=== PATIENT | male | born 1960 | race African-American/Black ===

== ENCOUNTER 2016-12-29 17:16 | Inpatient (IN) | payer MEDICAID ==
[2016-12-29] MEDS ORDERED: HYDROCODONE/ACETAMINOPHEN 5-325 MG TABLET PO ONE (18:00)
--- NOTE | 2016-12-29 18:06 | ER Document Report ---
ED Medical Screen (RME) - General Stated Complaint: FLANK PAIN,ABNORMAL RESULTS Mode of Arrival: Ambulatory Information source: Patient Notes: 56 y/o M presents to ED referred by pcp c/o ruq abd/lower chest pain over the last week. Reports associated decreased appetite and states pain is worse with deep breathing and movement. I have greeted and performed a rapid initial assessment of this patient. A comprehensive ED assessment and evaluation of the patient, analysis of test results and completion of the medical decision making process will be conducted by additional ED providers. TRAVEL OUTSIDE OF THE [place] IN LAST 30 DAYS: No - Related Data Allergies/Adverse Reactions: No Known Allergies Allergy (Unverified 12/29/16 17:58) Physical Exam - Vital signs Vitals: Temp Pulse Resp BP Pulse Ox 99.1 F 105 H 24 H 136/77 H 92 12/29/16 18:01 12/29/16 18:01 12/29/16 18:01 12/29/16 18:01 12/29/16 18:01 - General General appearance: Alert In distress: None - Respiratory Respiratory status: No respiratory distress Breath sounds: Rhonchi - R>L. No: Wheezing - Cardiovascular Pulses: Normal: Radial Normal capillary refill: Yes Course - Vital Signs Vital signs: Temp Pulse Resp BP Pulse Ox 99.1 F 105 H 24 H 136/77 H 92 12/29/16 18:01 12/29/16 18:01 12/29/16 18:01 12/29/16 18:01 12/29/16 18:01
[2016-12-29 18:35] LABS: HEMATOCRIT 39.3 % (37.9-51.0); HEMOGLOBIN 13.3 g/dL (13.5-17.0); HGB HCT DIFFERENCE 0.6; MEAN CORPUSCULAR HEMOGLOBIN 29.5 pg (27.0-33.4); MEAN CORPUSCULAR HGB CONC 33.9 g/dL (32.0-36.0); MEAN CORPUSCULAR VOLUME 87 fl (80-97); RED BLOOD COUNT 4.53 10^6/uL (4.35-5.55); RED CELL DISTRIBUTION WIDTH 13.5 % (11.5-14.0); WHITE BLOOD COUNT 26.4 10^3/uL (4.0-10.5)
[2016-12-29 18:48] LABS: ALANINE AMINOTRANSFERASE 75 U/L (21-72); ALBUMIN 3.6 g/dL (3.5-5.0); ALKALINE PHOSPHATASE 103 U/L (38-126); ANION GAP 16 (5-19); APPEARANCE,URINE SLIGHTLY-CLOUDY; ASPARTATE AMINO TRANSFERASE 61 U/L (17-59); BILIRUBIN,TOTAL 0.9 mg/dL (0.2-1.3); BILIRUBIN,URINE SMALL (NEGATIVE); BLOOD UREA NITROGEN 13 mg/dL (7-20); CARBON DIOXIDE 27 mmol/L (22-30); CHLORIDE 96 mmol/L (98-107); CREATININE RESULT 0.82 mg/dL (0.52-1.25); GLUCOSE 125 mg/dL (75-110); GLUCOSE, URINE NEGATIVE (NEGATIVE); KETONES,URINE TRACE mg/dL (NEGATIVE); LEUKOCYTE ESTERASE,URINE SMALL (NEGATIVE); LIPASE 621.5 U/L (23-300); NITRITE,URINE NEGATIVE (NEGATIVE); POTASSIUM 3.5 mmol/L (3.6-5.0); PROTEIN,URINE 100 mg/dL (NEGATIVE); SODIUM 139.3 mmol/L (137-145); URINE SPECIFIC GRAVITY 1.027
[2016-12-29 18:58] LABS: BASOPHILS % (MANUAL) 0 % (0-2); EOSINOPHILS % (MANUAL) 0 % (0-6); LYMPHOCYTES % (MANUAL) 10 % (13-45); TOTAL CELLS COUNTED 100
[2016-12-29 19:01] LABS: PLATELET CLUMPS PRESENT; POLYCHROMASIA SLIGHT; TOXIC GRANULATION 1+; TOXIC VACUOLATION PRESENT
[2016-12-29] MEDS ORDERED: CEFTRIAXONE 1 GM/D5W RTU 50 ML IV ONE (19:55)
[2016-12-29] MEDS ORDERED: NORMAL SALINE 1000 ML 1,000 ML IV ONE (19:56)
[2016-12-29] MEDS ORDERED: LEVOFLOXACIN 750 MG/D5W RTU 150 ML IV ONE (19:56)
[2016-12-29 20:33] LABS: VENOUS BLOOD PCO2 39.5 mmHg (35-63); VENOUS BLOOD PH 7.45 (7.30-7.42)
[2016-12-29] MEDS ORDERED: LACTULOSE SYRUP 20 GM/30 ML UDCUP PO ONE (20:40)
--- NOTE | 2016-12-29 20:42 | ER Document Report ---
ED General - General Chief Complaint: Flank Pain Stated Complaint: FLANK PAIN,ABNORMAL RESULTS Mode of Arrival: Ambulatory Notes: Patient is a 56-year-old male with a past medical history of hypertension and symptomatic cholelithiasis who presents with 24 hours of progressively worsening cough, sputum production, and right lower rib pain. Does describe the pain as a dull aching pain. Does were gradual in onset and have been getting progressively worse. Nothing improves or worsens the pain. He was seen by his primary care physician today who referred him to the emergency department after being concerned about the degree of his white blood cell count elevation. Patient notes some mild shortness of breath which is worsened by exertion. He has not had a fever at home. No vomiting or diarrhea. No known sick contacts. No history of similar symptoms in the past. He denies any history of chronic lung disease. He denies any chest pain. TRAVEL OUTSIDE OF THE [place] IN LAST 30 DAYS: No - Related Data Allergies/Adverse Reactions: No Known Allergies Allergy (Unverified 12/29/16 17:58) Home Medications: Current Home Medications Methocarbamol [Robaxin 750 mg Tablet] 750 mg PO Q6HP PRN 12/29/16 [History] Naproxen [Naprosyn 250 mg Tablet] 500 mg PO Q12HP PRN 12/29/16 [History] Past Medical History - General Information source: Patient - Social History Smoking Status: Current Every Day Smoker Chew tobacco use (# tins/day): No Drug Abuse: None Lives with: Spouse/Significant other Family History: Reviewed & Not Pertinent Patient has suicidal ideation: No Patient has homicidal ideation: No - Past Medical History Cardiac Medical History: Reports: Hx Hypercholesterolemia Renal/ Medical History: Denies: Hx Peritoneal Dialysis Review of Systems - Review of Systems Notes: Constitutional: Negative for fever. HENT: Negative for sore throat. Eyes: Negative for visual changes. Cardiovascular: Negative for chest pain. Respiratory: Positive for shortness of breath. Gastrointestinal: Positive for abdominal pain, negative for vomiting or diarrhea. Genitourinary: Negative for dysuria. Musculoskeletal: Negative for back pain. Skin: Negative for rash. Neurological: Negative for headaches, weakness or numbness. 10 point ROS negative except as marked above and in HPI. Physical Exam - Vital signs Vitals: Temp Pulse Resp BP Pulse Ox 99.1 F 105 H 24 H 136/77 H 92 12/29/16 18:01 12/29/16 18:01 12/29/16 18:01 12/29/16 18:01 12/29/16 18:01 Interpretation: Tachycardic, Hypoxic, Tachypneic Notes: PHYSICAL EXAMINATION: GENERAL: Mildly ill in appearance but in no acute distress HEAD: Atraumatic, normocephalic. EYES: Pupils equal round and reactive to light, extraocular movements intact, sclera anicteric, conjunctiva are normal. ENT: nares patent, oropharynx clear without exudates. Moist mucous membranes. NECK: Normal range of motion, supple without lymphadenopathy LUNGS: Slightly diminished at the right low base. Mild tachypnea with respiratory rate of 24. No distress. HEART: Regular tachycardia without murmurs ABDOMEN: Soft, mild tenderness the right upper quadrant on palpation. Bedside ultrasound shows gallstones without gallbladder wall thickening, pericholecystic fluid. Normoactive bowel sounds. No guarding, no rebound. No masses appreciated. EXTREMITIES: Normal range of motion, no pitting or edema. No cyanosis. NEUROLOGICAL: No focal neurological deficits. Moves all extremities spontaneously and on command. PSYCH: Normal mood, normal affect. SKIN: Warm, Dry, normal turgor, no rashes or lesions noted. Course - Re-evaluation Re-evalutation: 12/29/16 20:37 Patient presents with right upper quadrant abdominal pain as well as right lower rib pain. This been getting progressively worse over last 2 weeks. His chest x-ray shows a large right lower lobe pneumonia as well as a possible right middle lobe infiltrate. Patient was mildly tachypneic and borderline hypoxemic at time of arrival with oxygen sat of 92% on room air. He is mildly tachycardic. Overall nontoxic in appearance. Patient also has complaint of some right upper quadrant abdominal pain and has been diagnosed as having symptomatic cholelithiasis. He states this pain is unchanged today. A bedside ultrasound does not demonstrate any wall thickening or pericholecystic fluid, gallstones are again visualized. Borderline hypoxemia, tachycardia, mild tachypnea, leukocytosis, will proceed with admission to the hospital for IV antibiotics. Patient and his are in agreement with this plan. - Vital Signs Vital signs: Temp Pulse Resp BP Pulse Ox 98.5 F 95 16 144/74 H 95 12/29/16 22:42 12/30/16 02:15 02/02/17 22:42 12/29/16 22:42 12/29/16 22:42 - Laboratory Result Diagrams: 12/29/16 18:10 12/29/16 18:10 Laboratory results interpreted by me: 12/29/16 12/29/16 12/29/16 18:10 18:10 18:10 WBC 26.4 H Hgb 13.3 L Seg Neuts % (Manual) 84 H Lymphocytes % (Manual) 10 L Monocytes % (Manual) 1 L Abs Neuts (Manual) 22.2 H VBG pH Potassium 3.5 L Chloride 96 L Glucose 125 H AST 61 H ALT 75 H Lipase 621.5 H Urine Protein 100 H Urine Ketones TRACE H Urine Blood SMALL H Urine Bilirubin SMALL H Urine Urobilinogen 4.0 H Ur Leukocyte Esterase SMALL H 12/29/16 20:21 WBC Hgb Seg Neuts % (Manual) Lymphocytes % (Manual) Monocytes % (Manual) Abs Neuts (Manual) VBG pH 7.45 H Potassium Chloride Glucose AST ALT Lipase Urine Protein Urine Ketones Urine Blood Urine Bilirubin Urine Urobilinogen Ur Leukocyte Esterase - Diagnostic Test Radiology reviewed: Image reviewed, Reports reviewed Radiology results interpreted by me: 12/29/16 20:41 Chest x-ray: Right lower lobe pneumonia possible right middle lobe infiltrate Discharge - Discharge Clinical Impression: Sepsis Qualifiers: Sepsis type: sepsis due to unspecified organism Qualified Code(s): A41.9 - Sepsis, unspecified organism Right lower lobe pneumonia Qualifiers: Pneumonia type: due to unspecified organism Qualified Code(s): J18.1 - Lobar pneumonia, unspecified organism Condition: Fair Disposition: ADMITTED OBSERVATION Admitting Provider: Hospitalist [facility] Unit Admitted: Telemetry
[2016-12-29] MEDS ORDERED: NORMAL SALINE 1000 ML 1,000 ML IV SCH (20:45)
[2016-12-29] MEDS ORDERED: IPRATROPIUM/ALBUTEROL 0.5-2.5 MG/3 ML AMPUL NEB ONE (21:00)
[2016-12-29] MEDS: FLUTICASONE NASAL SPRAY 50 MCG/SPRY 120 SPRAY/16 GM NASL SCH (22:47)
[2016-12-29] MEDS ORDERED: INFLUENZA ADLT QUAD (36MOS+) 2016-17 VAC 0.5 ML SYR IM PRN (22:53)
[2016-12-29] MEDS: HEPARIN SOD (PORCINE) 5,000 UNIT/ML 1 ML SYRINGE SUBCUT SCH (23:20)
[2016-12-29 23:42] LABS: PROTHROMBIN TIME 14.9 SEC (11.4-15.4)
[2016-12-30] MEDS: IPRATROPIUM/ALBUTEROL 0.5-2.5 MG/3 ML AMPUL NEB SCH ×4 (02:03→21:49)
[2016-12-30] MEDS: ACETAMINOPHEN 325 MG TABLET PO PRN ×3 (04:01→17:13)
[2016-12-30] MEDS: GUAIFENESIN SYRP 200 MG/10 ML UDC PO PRN ×4 (04:02→17:13)
[2016-12-30] MEDS ORDERED: VANCOMYCIN HCL 1,000 MG in DEXTROSE 5%-WATER 250 ML IV ONE (04:25)
[2016-12-30] MEDS ORDERED: VANCOMYCIN HCL 0 MG in DEXTROSE 5%-WATER 250 ML IV NR (04:30)
--- NOTE | 2016-12-30 04:36 | PDOC H&P ---
History of Present Illness Admission Date/PCP: 12/29/16 20:41 Patient complains of: Shortness of breath and right-sided abdominal pain History of Present Illness: GARFIELD KING is a 56 year old male with a past medical history of tobacco Dependence, who had been in his usual state of health until approximately 2 weeks ago noting shortness of breath with deep breathing associated with right upper quadrant pain prompting to seek evaluation with his primary care Dr. Moya. Patient states there was concern for cholecystitis and referred to the ER for workup where his found to have an oxygen saturation of only 92% on room air dropping to 87% with ambulation and tachypnea. Denying subjective fever and chills nausea vomiting diaphoresis or palpitations. Imaging reveals a loculated pleural effusion on the right side and is referred to the hospitalist for admission. Past Medical History Cardiac Medical History: Reports: Hyperlipidema Psychiatric Medical History: Reports: Tobacco Dependency Social History Information Source: Patient, Relative Lives with: Spouse/Significant other Smoking Status: Current Every Day Smoker Cigarettes Packs Per Day: 1 Drugs: None Hx Prescription Drug Abuse: No - Advance Directive Resuscitation Status: Full Code Family History Family History: COPD, Hypertension Parental Family History Reviewed: Yes Children Family History Reviewed: Yes Sibling(s) Family History Reviewed.: Yes Medication/Allergy Home Medications: Methocarbamol [Robaxin 750 mg Tablet] 750 mg PO Q6HP PRN 12/29/16 Naproxen [Naprosyn 250 mg Tablet] 500 mg PO Q12HP PRN 12/29/16 Allergies/Adverse Reactions: No Known Allergies Allergy (Unverified 12/29/16 17:58) Review of Systems Constitutional: PRESENT: anorexia, chills, fatigue. ABSENT: fever(s), headache( s), weight gain, weight loss Eyes: ABSENT: visual disturbances Ears: ABSENT: hearing changes Cardiovascular: ABSENT: chest pain, dyspnea on exertion, edema, orthropnea, palpitations Respiratory: PRESENT: cough, dyspnea. ABSENT: hemoptysis, sputum Gastrointestinal: PRESENT: bloating, constipation, nausea. ABSENT: abdominal pain, diarrhea, hematemesis, hematochezia, vomiting Genitourinary: ABSENT: dysuria, hematuria Musculoskeletal: ABSENT: joint swelling Integumentary: ABSENT: rash, wounds Neurological: ABSENT: abnormal gait, abnormal speech, confusion, dizziness, focal weakness, syncope Psychiatric: ABSENT: anxiety, depression, homidical ideation, suicidal ideation Endocrine: ABSENT: cold intolerance, heat intolerance, polydipsia, polyuria Hematologic/Lymphatic: ABSENT: easy bleeding, easy bruising Physical Exam Vital Signs: Temp Pulse Resp BP Pulse Ox 98.5 F 95 16 144/74 H 95 12/29/16 22:42 12/30/16 02:15 12/29/16 22:42 12/29/16 22:42 12/29/16 22:42 Intake & Output 12/28/16 12/29/16 12/30/16 11:59 11:59 11:59 Weight 93 kg General appearance: PRESENT: cooperative, mild distress, thin. ABSENT: disheveled, hard of hearing Head exam: PRESENT: atraumatic, normocephalic Eye exam: PRESENT: conjunctiva pink, EOMI, PERRLA. ABSENT: scleral icterus Ear exam: PRESENT: normal external ear exam Mouth exam: PRESENT: moist, tongue midline Neck exam: ABSENT: carotid bruit, JVD, lymphadenopathy, thyromegaly Respiratory exam: PRESENT: accessory muscle use, decreased breath sounds, prolonged expiratory phas, rhonchi, symmetrical, tachypnea Cardiovascular exam: PRESENT: +S1, +S2. ABSENT: clicks, diastolic murmur Pulses: PRESENT: normal dorsalis pedis pul Vascular exam: PRESENT: normal capillary refill GI/Abdominal exam: PRESENT: distended, hypoactive bowel sounds, tenderness. ABSENT: firm, guarding Rectal exam: PRESENT: deferred Extremities exam: PRESENT: full ROM. ABSENT: calf tenderness, clubbing, pedal edema Neurological exam: PRESENT: alert, awake, oriented to person, oriented to place , oriented to time, oriented to situation, CN II-XII grossly intact. ABSENT: motor sensory deficit Psychiatric exam: PRESENT: appropriate affect, normal mood. ABSENT: homicidal ideation, suicidal ideation Skin exam: PRESENT: dry, intact, warm. ABSENT: cyanosis, rash Results Impressions: Chest X-Ray 12/29/16 18:06 IMPRESSION: Right-sided infiltrate consistent with pneumonia. Abdomen/Pelvis CT 12/30/16 00:00 IMPRESSION: Calcified gallstones are identified. There is some enlargement of the prostate gland with a prostatic impression on the bladder base. Other findings as noted above Assessment & Plan - Diagnosis (1) Sepsis Qualifiers: Sepsis type: sepsis due to unspecified organism Qualified Code(s): A41.9 - Sepsis, unspecified organism Is this a current diagnosis for this admission?: YesPlan: Tachycardia and leukocytosis of 26,000 secondary to pneumonia with loculated pleural effusion he'll have an IV fluid challenge and correction of the underlying cause please see #2 (2) Right lower lobe pneumonia Qualifiers: Pneumonia type: due to unspecified organism Qualified Code(s): J18.1 - Lobar pneumonia, unspecified organism Is this a current diagnosis for this admission?: YesPlan: Collocated by by loculated pleural effusion and COPD with ongoing tobacco dependence he'll be admitted to a monitored bed with IV antibiotics of Levaquin and vancomycin, albuterol and Atrovent nebulizer, incentive spirometry, blood culture, follow-up labs and pulmonology consultation (3) COPD exacerbation Is this a current diagnosis for this admission?: YesPlan: Please see #1 (4) Constipation Is this a current diagnosis for this admission?: YesPlan: Lactulose followed by Colace consider enema - Time Time Spent: 50 to 70 Minutes
[2016-12-30] MEDS ORDERED: VANCOMYCIN HCL INJ 1000 MG VIAL ONE (04:58)
[2016-12-30] MEDS: HEPARIN SOD (PORCINE) 5,000 UNIT/ML 1 ML SYRINGE SUBCUT SCH ×2 (05:18→17:15)
[2016-12-30 06:25] LABS: HEMATOCRIT 34.2 % (37.9-51.0); HEMOGLOBIN 11.7 g/dL (13.5-17.0); HGB HCT DIFFERENCE 0.9; MEAN CORPUSCULAR HEMOGLOBIN 29.6 pg (27.0-33.4); MEAN CORPUSCULAR VOLUME 87 fl (80-97); RED BLOOD COUNT 3.94 10^6/uL (4.35-5.55); RED CELL DISTRIBUTION WIDTH 13.8 % (11.5-14.0); WHITE BLOOD COUNT 23.7 10^3/uL (4.0-10.5)
[2016-12-30 06:35] LABS: ANION GAP 13 (5-19); BLOOD UREA NITROGEN 10 mg/dL (7-20); CALCIUM 8.1 mg/dL (8.4-10.2); CARBON DIOXIDE 25 mmol/L (22-30); CHLORIDE 101 mmol/L (98-107); CREATININE RESULT 0.66 mg/dL (0.52-1.25); GLUCOSE 141 mg/dL (75-110); POTASSIUM 3.6 mmol/L (3.6-5.0); SODIUM 138.6 mmol/L (137-145)
[2016-12-30 06:59] LABS: BAND NEUTROPHILS % (MANUAL) 6 % (3-5); BASOPHILS % (MANUAL) 0 % (0-2); EOSINOPHILS % (MANUAL) 0 % (0-6); LYMPHOCYTES % (MANUAL) 9 % (13-45); TOTAL CELLS COUNTED 100
[2016-12-30 07:01] LABS: ANISOCYTOSIS SLIGHT; POLYCHROMASIA SLIGHT; TOXIC GRANULATION SLIGHT; TOXIC VACUOLATION PRESENT
[2016-12-30] MEDS: FLUTICASONE NASAL SPRAY 50 MCG/SPRY 120 SPRAY/16 GM NASL SCH (09:38)
[2016-12-30] MEDS ORDERED: LEVOFLOXACIN 750 MG/D5W RTU 150 ML IV SCH (10:00)
[2016-12-30 13:53] LABS: PROTHROMBIN TIME 15.4 SEC (11.4-15.4)
[2016-12-30 13:54] LABS: PARTIAL THROMBOPLASTIN TIME 33.8 SEC (23.5-35.8)
--- NOTE | 2016-12-30 17:13 | PDOC TRANSFER SUMMARY ---
General Admission Date/PCP: 12/29/16 20:41 Transfer Date: 12/30/16 Accepting Facility: [facility] Accepting Physician: Dr. Carvajal Resuscitation Status: Full Code - Transfer Diagnosis (1) Right lower lobe pneumonia Is this a current diagnosis for this admission?: YesDiagnosis Summary: Patient presented with right upper quadrant pain and was found to have a right lower lobe pneumonia as well as a pleural effusion that is loculated. This is worrisome for possible empyema. The patient initially was given Levaquin and vancomycin. The vancomycin has been stopped as the patient does not have risk factors for MRSA exposure. (2) Pleural effusion Is this a current diagnosis for this admission?: YesDiagnosis Summary: Most likely secondary to the lower lobe pneumonia. The patient has what appears to be loculated effusion. Patient was seen by the local personal injury law specialist after I discussed the case with Francisco Merrill and a thoracentesis was ordered. 30 mL was removed and no further was able to be removed because of the loculation. I discussed the case with cardiothoracic surgery and Francisco Merrill who agrees the patient needs a intervention with probable VATS procedure. (3) Hyperlipidemia Is this a current diagnosis for this admission?: Yes - Transfer Medications Home Medications: Methocarbamol [Robaxin 750 mg Tablet] 750 mg PO Q6HP PRN 12/29/16 Naproxen [Naprosyn 250 mg Tablet] 500 mg PO Q12HP PRN 12/29/16 Transfer Medications: Current Medications Acetaminophen (Tylenol 325 Mg Tablet) 650 mg PO Q4HP PRN PRN Reason: pain or temp greater than 101F Stop: 01/28/17 20:39 Last Admin: 12/30/16 09:00 Dose: 650 mg Albuterol/Ipratropium (Duoneb 3 Ml Ampul) 3 ml NEB RTQ6 JARON Stop: 01/29/17 01:59 Last Admin: 12/30/16 14:09 Dose: Not Given Fluticasone Propionate (Flonase Nasal [place] 50 Mcg/[place] 16 Gm) 2 spray NASL Q12 JARON Stop: 01/28/17 21:59 Last Admin: 12/30/16 09:38 Dose: 2 spray Guaifenesin (Robitussin Syrup 200 Mg/10 Ml Ud Cup) 200 mg PO Q4HP PRN Stop: 01/29/17 03:43 Last Admin: 12/30/16 12:50 Dose: 200 mg Heparin Sodium (Porcine) (Heparin Inj 5,000 Units/Ml 1 Ml Syringe) 5,000 unit SUBCUT Q8 [facility] Stop: 01/28/17 21:59 Last Admin: 12/30/16 05:18 Dose: 5,000 unit Levofloxacin/Dextrose (Levaquin Rtu 750 Mg/D5w 150 Ml Premix) 150 mls @ 100 mls /hr IV DAILY JARON Stop: 01/06/17 09:59 Last Admin: 12/30/16 09:38 Dose: 150 ml Sodium Chloride (Nacl 0.9% 1000 Ml Iv Soln) 1,000 mls @ 200 mls/hr IV X 2 BAGS [facility] Stop: 01/28/17 20:44 Influenza Virus Vaccine Quadrival (Fluzone Adlt Quad [id number] Vac 0.5 Ml Syr) 0.5 ml IM .AT DISCHARGE PRN PRN Reason: THIS MED IS NOT "PRN" Stop: 01/28/17 22:52 Sodium Chloride (Saline Flush 2.5 Ml Monoject Prefil Syrin) 2.5 ml IV Q8 JARON Stop: 01/28/17 21:59 Last Admin: 12/30/16 05:18 Dose: 2.5 ml - Allergies Allergies/Adverse Reactions: No Known Allergies Allergy (Unverified 12/29/16 17:58) - Diet/Activity Discharge Diet: Cardiac Hospital Course Hospital Course: 56-year-old gentleman who was admitted with right upper quadrant abdominal pain. The patient when he presented had right upper quadrant pain and there is concerned because he had calcified gallstones present on plain films. The patient underwent a CT and was found to have no evidence for cholecystitis but did have a loculated pleural effusion on the right along with right lower lobe pneumonia. Chest x-ray confirms right-sided pneumonia with effusion. The patient, because of the loculated effusion, needed to go to a tertiary center. I discussed this with the hospitalist service at [facility] who graciously agreed to accept the patient. Patient was also seen by our local personal injury law specialist who ordered a thoracentesis and 30 mL were removed by the radiologist. No further fluid was able to be removed because of the loculation. Because of this the patient will require a chest tube if not a VATS procedure. The patient was initially put on vancomycin and Levaquin. The patient does not have risk factors for MRSA and the vancomycin was stopped and is continued on just the Levaquin. Physical Exam Vital Signs: Temp Pulse Resp BP Pulse Ox 97.6 F 104 H 16 157/80 H 97 12/30/16 15:36 12/30/16 15:36 12/30/16 15:36 12/30/16 15:36 12/30/16 15:36 Intake & Output 12/29/16 12/30/16 12/31/16 06:59 06:59 06:59 Intake Total 2100 Balance 2100 Weight 93 kg General appearance: PRESENT: no acute distress Eye exam: PRESENT: conjunctiva pink. ABSENT: scleral icterus Ear exam: PRESENT: normal external ear exam Mouth exam: PRESENT: moist, tongue midline Neck exam: ABSENT: carotid bruit, JVD, lymphadenopathy, thyromegaly Respiratory exam: PRESENT: decreased breath sounds - Decreased breath sounds on the right., rhonchi - Coarse rhonchi and upper right lung lawrence Cardiovascular exam: PRESENT: RRR. ABSENT: diastolic murmur, rubs, systolic murmur Vascular exam: PRESENT: normal capillary refill GI/Abdominal exam: PRESENT: normal bowel sounds, soft. ABSENT: distended, guarding, mass, organolmegaly, rebound, tenderness Rectal exam: PRESENT: deferred Extremities exam: PRESENT: full ROM. ABSENT: calf tenderness, clubbing, pedal edema Neurological exam: PRESENT: alert, awake, oriented to person, oriented to place , oriented to time, oriented to situation, CN II-XII grossly intact. ABSENT: motor sensory deficit Psychiatric exam: PRESENT: appropriate affect Skin exam: PRESENT: dry, intact, warm. ABSENT: cyanosis, rash Results Laboratory Results: 12/30/16 06:01 12/30/16 06:04 12/30/16 12/30/16 06:01 06:04 WBC 23.7 H RBC 3.94 L Hgb 11.7 L Hct 34.2 L MCV 87 MCH 29.6 MCHC 34.0 RDW 13.8 Plt Count 300 Seg Neutrophils % Not Reportable Lymphocytes % Not Reportable Monocytes % Not Reportable Eosinophils % Not Reportable Basophils % Not Reportable Absolute Neutrophils Not Reportable Absolute Lymphocytes Not Reportable Absolute Monocytes Not Reportable Absolute Eosinophils Not Reportable Absolute Basophils Not Reportable Sodium 138.6 Potassium 3.6 Chloride 101 Carbon Dioxide 25 Anion Gap 13 BUN 10 Creatinine 0.66 Est GFR ( Amer) > 60 Est GFR (Non-Af Amer) > 60 Glucose 141 H Calcium 8.1 L Impressions: Abdomen/Pelvis CT 12/30/16 00:00 IMPRESSION: Calcified gallstones are identified. There is some enlargement of the prostate gland with a prostatic impression on the bladder base. Other findings as noted above Chest X-Ray 12/30/16 00:00 IMPRESSION: STABLE APPEARANCE OF THE CHEST. Thoracentesis Ultrasound 12/30/16 12:55 IMPRESSION: SUCCESSFUL THORACENTESIS USING ULTRASOUND GUIDANCE. Plan Discharge Plan: Patient is to be transferred to [facility] Dr. Carvajal is the accepting physician. Case was also discussed with Dr. Sosa of thoracic surgery about the possibility of requiring a VATS procedure. He stated that he would have the hospitalist admit the patient and would plan on doing a VATS procedure on Monday. Time Spent: Greater than 30 Minutes
[2016-12-30 20:42] VITALS: BP 137/72
== END 2016-12-30 20:08 | disposition short-term general hospital (02) | DRG 194 ==
LOC: ER 17:16 → EH 20:41 → UNDOADMIN 20:53 → 4S 22:29
PROVIDERS: ADMIT Internal Medicine; ATTEND Internal Medicine
PROC: 0W993ZX Drainage of Right Pleural Cavity, Percutaneous Approach, Diagnostic (ICD-10-PCS; principal; 2016-12-30)
DX: J18.9 Pneumonia, unspecified organism (principal); J90 Pleural effusion, not elsewhere classified; E78.5 Hyperlipidemia, unspecified; F17.210 Nicotine dependence, cigarettes, uncomplicated; Z82.5 Family history of asthma and other chronic lower respiratory diseases; Z82.49 Family history of ischemic heart disease and other diseases of the circulatory system
CPT/HCPCS: 32555; 36415; 71010; 71020; 74177; 80048; 80053; 81001; 82150; 82803; 83605; 83615; 83690; 84157; 85025; 85610; 85730; 87015; 87040; 87070; 87075; 87101; 87116; 87205; 87206; 87252; 94640; 96365; 96368; 99285; J0696; J1644; J1956; J3370; J3490; J7030; J7620

== ENCOUNTER → 2017-01-12 | Outpatient (CLI) | payer MEDICAID | LOC: OD 11:21 | PROVIDERS: ATTEND Family Medicine | DX: J69.0 Pneumonitis due to inhalation of food and vomit (principal) | CPT/HCPCS: 71020 ==

== ENCOUNTER → 2017-02-21 | Outpatient (CLI) | payer MEDICAID | LOC: RAD 09:06 | PROVIDERS: ATTEND Urology | DX: R31.0 Gross hematuria (principal); N40.0 Benign prostatic hyperplasia without lower urinary tract symptoms; K80.80 Other cholelithiasis without obstruction | CPT/HCPCS: 74178; 82565 ==

== ENCOUNTER 2018-02-22 09:31 | Inpatient (IN) | payer MEDICAID, MEDICARE ==
[2018-02-22] MEDS ORDERED: NALOXONE HCL INJ/PF 0.4 MG/1 ML SDV IV ONE (09:48)
--- NOTE | 2018-02-22 09:52 | ER Document Report ---
ED Medical Screen (RME) - General Chief Complaint: Feet Swelling Stated Complaint: FEET SWELLING, COUGH Time Seen by Provider: 02/22/18 09:40 Notes: Patient sent over from primary care doctor's office for low temperature of 95.6 orally, altered mental status. Patient reportedly had recent pneumonia with large amount of pleural effusions, complications with a prostate surgery. states that he has had increased confusion and not feeling normal for the last several days. I have greeted and performed a rapid initial assessment of this patient. A comprehensive ED assessment and evaluation of the patient, analysis of test results and completion of the medical decision making process will be conducted by additional ED providers. TRAVEL OUTSIDE OF THE [place] IN LAST 30 DAYS: No - Related Data Allergies/Adverse Reactions: No Known Allergies Allergy (Verified 02/22/18 09:32) Past Medical History - Past Medical History Cardiac Medical History: Reports: Hx Hypercholesterolemia Renal/ Medical History: Denies: Hx Peritoneal Dialysis Physical Exam - Vital signs Vitals: Temp Pulse Resp BP Pulse Ox 96.4 F L 115 H 22 H 108/55 L 96 02/22/18 09:33 02/22/18 09:33 02/22/18 09:33 02/22/18 09:33 02/22/18 09:33 - Notes Notes: General: Sleepy, arousable HEENT: Atraumatic, normocephalic, pupils are 1-1/2 mm bilaterally/borderline pinpoint.. Pupils equal round react to light and accommodation, extraocular muscles are intact, nose is non tender, posterior pharynx is without erythema or exudate. Tongue is unremarkable Heart: Heart with regular rate and rhythm, no murmurs, no rubs, no clicks, edema bilateral lower extremities Lungs: Crackles at the bases bilaterally left greater than the right Abdomen: Abdomen is soft, nontender, nondistended, normal bowel sounds Neuro: cranial nerves II through XII intact, reflexes intact, sensation intact, Extremities:Moving all extremities. Equal strength bilaterally in the upper lower extremities. No significant deformity. Edema noted bilateral lower extremities Skin: No lesions. Skin intact Psych: Normal insight. Normal judgment Course - Vital Signs Vital signs: Temp Pulse Resp BP Pulse Ox 96.4 F L 115 H 22 H 108/55 L 96 02/22/18 09:33 02/22/18 09:33 02/22/18 09:33 02/22/18 09:33 02/22/18 09:33
[2018-02-22] MEDS ORDERED: NALOXONE HCL INJ 2 MG/2 ML DISP.SYRIN IV ONE (10:10)
[2018-02-22] MEDS ORDERED: NALOXONE HCL INJ 2 MG/2 ML DISP.SYRIN ONE (10:13)
[2018-02-22 10:15] LABS: HEMATOCRIT 42.6 % (37.9-51.0); HEMOGLOBIN 14.5 g/dL (13.5-17.0); MEAN CORPUSCULAR HEMOGLOBIN 27.9 pg (27.0-33.4); RED CELL DISTRIBUTION WIDTH 15.3 % (11.5-14.0)
[2018-02-22 10:21] LABS: MEAN CORPUSCULAR VOLUME 82 fl (80-97)
[2018-02-22 10:22] LABS: PLATELET COUNT 11 10^3/uL (150-450)
[2018-02-22] MEDS ORDERED: CEFTRIAXONE INJ 1000 MG VIAL IV ONE (10:28)
[2018-02-22 10:30] LABS: ALANINE AMINOTRANSFERASE 66 U/L (21-72); ALBUMIN 2.9 g/dL (3.5-5.0); ALKALINE PHOSPHATASE 195 U/L (38-126); ANION GAP 15 (5-19); ASPARTATE AMINO TRANSFERASE 76 U/L (17-59); BILIRUBIN,DIRECT 5.8 mg/dL (0.0-0.4); BILIRUBIN,TOTAL 6.5 mg/dL (0.2-1.3); CALCIUM 8.8 mg/dL (8.4-10.2); CARBON DIOXIDE 19 mmol/L (22-30); CHLORIDE 96 mmol/L (98-107); CREATINE KINASE 26 U/L (55-170); GLUCOSE 155 mg/dL (75-110); SODIUM 130.4 mmol/L (137-145)
[2018-02-22 10:38] LABS: BLOOD UREA NITROGEN 125 mg/dL (7-20)
[2018-02-22 10:39] LABS: ABSOLUTE LYMPHOCYTES# (MANUAL) 0.5 10^3/uL (0.5-4.7); ABSOLUTE MONOCYTES # (MANUAL) 0.3 10^3/uL (0.1-1.4); ABSOLUTE NEUTROPHILS# (MANUAL) 25.2 10^3/uL (1.7-8.2); BAND NEUTROPHILS % (MANUAL) 1 % (3-5); BASOPHILS % (MANUAL) 0 % (0-2); EOSINOPHILS % (MANUAL) 0 % (0-6); LYMPHOCYTES % (MANUAL) 2 % (13-45); MONOCYTES % (MANUAL) 1 % (3-13); SEGMENTED NEUTROPHILS % (MAN) 96 % (42-78); TOTAL CELLS COUNTED 100
[2018-02-22 10:41] LABS: ANISOCYTOSIS SLIGHT; TOXIC GRANULATION 1+; TOXIC VACUOLATION PRESENT
[2018-02-22 10:42] LABS: CREATINE KINASE MB 0.66 ng/mL (<4.55); NT PRO BNP 6200 pg/mL (5-900); PLATELET COMMENT DECREASED
--- NOTE | 2018-02-22 10:42 | RADIOLOGY REPORT (SQ) ---
EXAM DESCRIPTION: CHEST SINGLE VIEW COMPLETED DATE/TIME: 02/22/2018 10:23 am REASON FOR STUDY: sob COMPARISON: Chest films 12/29/2016, 01/12/2017 EXAM PARAMETERS: NUMBER OF VIEWS: One view. TECHNIQUE: Single frontal radiographic view of the chest acquired. RADIATION DOSE: NA LIMITATIONS: None. FINDINGS: LUNGS AND PLEURA: There is consolidation just above the right hemidiaphragm, atelectasis v ersus pneumonia. This has partially resolved compared to prior chest films on 01/12/2017 and 12/29/2016 . Thin bandlike scarring is seen in the lateral right upper lobe and just above the left hemidiaphragm. No fluffy alveolar infiltrates worrisome for edema. No pleural effusion. No pneumothorax. MEDIASTINUM AND HILAR STRUCTURES: No masses. Contour normal. HEART AND VASCULAR STRUCTURES: Heart normal in size. Normal vasculature. BONES: No acute findings. HARDWARE: None in the chest. OTHER: No other significant finding. IMPRESSION: Persisting consolidation right lung base, slightly improved compared to films from . No current plain film evidence of pulmonary edema TECHNICAL DOCUMENTATION: JOB ID: [id number] [employer]- All Rights Reserved Reading location - IP/workstation name: [email or web address]
[2018-02-22 10:43] LABS: TROPONIN I < 0.012 ng/mL
[2018-02-22 10:48] LABS: INTERNATIONAL RATION (INR) 1.16; PARTIAL THROMBOPLASTIN TIME 30.9 SEC (23.5-35.8); PROTHROMBIN TIME 15.6 SEC (11.4-15.4)
[2018-02-22] MEDS: NORMAL SALINE 1000 ML 1,000 ML IV PRN ×5 (11:16→23:42)
[2018-02-22 11:54] LABS: AMORPHOUS SEDIMENT,URINE TRACE /HPF; CALCIUM OXALATE CRYSTALS,URINE RARE /HPF
[2018-02-22 11:56] LABS: APPEARANCE,URINE CLOUDY; BILIRUBIN,URINE NEGATIVE (NEGATIVE); COLOR,URINE DARK YELLOW; GLUCOSE, URINE NEGATIVE (NEGATIVE); KETONES,URINE NEGATIVE (NEGATIVE); LEUKOCYTE ESTERASE,URINE LARGE (NEGATIVE); NITRITE,URINE NEGATIVE (NEGATIVE); PROTEIN,URINE 30 mg/dL (NEGATIVE); URINE SPECIFIC GRAVITY 1.015
--- NOTE | 2018-02-22 11:59 | RADIOLOGY REPORT (SQ) ---
EXAM DESCRIPTION: CT HEAD WITHOUT COMPLETED DATE/TIME: 02/22/2018 11:51 am REASON FOR STUDY: Altered mental status, lethargy, platelets 11,000 COMPARISON: None. TECHNIQUE: Axial images acquired through the brain without intravenous contrast. Images reviewed wi th bone, brain and subdural windows. Additional sagittal and coronal reconstructions were generated. Images stored on PACS. All CT scanners at this facility use dose modulation, iterative reconstruction, and/or weight based d osing when appropriate to reduce radiation dose to as low as reasonably achievable (ALARA). [facility]: Dose Right [facility]: CareDose [facility]: Dose Right [facility]: Teradose 4D [facility]: Smart Allocab RADIATION DOSE: CT Rad equipment meets quality standard of care and radiation dose reduction techniq ues were employed. CTDIvol: 53.2 mGy. DLP: 1070 mGy-cm. mGy. LIMITATIONS: None. FINDINGS: VENTRICLES: Normal size and contour. CEREBRUM: No masses. No hemorrhage. No midline shift. No evidence for acute infarction. Normal gra y/white matter differentiation. No areas of low density in the white matter. CEREBELLUM: No masses. No hemorrhage. No alteration of density. No evidence for acute infarction. EXTRAAXIAL SPACES: No fluid collections. No masses. ORBITS AND GLOBE: No intra- or extraconal masses. Normal contour of globe without masses. CALVARIUM: No fracture. PARANASAL SINUSES: Mucosal thickening right maxillary sinus. SOFT TISSUES: No mass or hematoma. OTHER: No other significant finding. IMPRESSION: NORMAL BRAIN CT WITHOUT CONTRAST. EVIDENCE OF ACUTE STROKE: NO. COMMENT: Quality ID # [id number]: Final reports with documentation of one or more dose reduction techniques (e.g., Automated exposure control, adjustment of the mA and/or kV according to patient size, use of iterative reconstruction technique) TECHNICAL DOCUMENTATION: JOB ID: [id number] [employer]- All Rights Reserved Reading location - IP/workstation name: [email or web address]
--- NOTE | 2018-02-22 12:13 | ER Document Report ---
ED General - General Chief Complaint: Feet Swelling Stated Complaint: FEET SWELLING, COUGH Time Seen by Provider: 02/22/18 09:40 Notes: Patient was seen in his primary care provider's office this morning and referred here for low blood pressure. Family says that he is having a difficult time breathing for the past 2-3 days. They have noticed swelling of both lower legs over the last week. They think that his abdomen is swollen for the past couple of days. He is having difficulty walking and unable to do so for the past 5 days, just stumbling with assistance. Patient is able to answer questions appropriately, but appears extremely weak and unable to perform tasks requested. He has a history of breathing difficulties on pro-air inhaler. Has a history of pneumonia in the past. describes him having a surgical procedure on the right lower thoracic region for fluid and infection buildup in that area done in [place] about a year ago. He used to smoke but does not now. No history of liver disease. Patient has a history of prostate condition as well as gout. TRAVEL OUTSIDE OF THE [place] IN LAST 30 DAYS: No - Related Data Allergies/Adverse Reactions: No Known Allergies Allergy (Verified 02/22/18 09:32) Past Medical History - Social History Smoking Status: Unknown if Ever Smoked Cigarette use (# per day): No Frequency of alcohol use: None Drug Abuse: None Family History: Reviewed & Not Pertinent, COPD, Hypertension Patient has suicidal ideation: No Patient has homicidal ideation: No - Past Medical History Cardiac Medical History: Reports: Hx Hypercholesterolemia Pulmonary Medical History: Reports: Hx Asthma - ? Not sure if asthmatic, but uses a pro-air inhaler., Hx Pneumonia Endocrine Medical History: Denies: Hx Diabetes Mellitus Type 1, Hx Diabetes Mellitus Type 2 Review of Systems - Review of Systems Notes: Some review of system obtained from . REVIEW OF SYSTEMS: CONSTITUTIONAL : Denies fever. EENT: Denies eye, ear, nose or mouth or throat pain or other symptoms. CARDIOVASCULAR: Denies chest pain. RESPIRATORY: Denies cough, chest congestion, but has had some shortness of breath. GASTROINTESTINAL: Denies abdominal pain or nausea, vomiting, or diarrhea. Thinks the abdomen appears swollen for the past couple of days. GENITOURINARY: Denies difficulty or painful urinating, urinary frequency, blood in urine. MUSCULOSKELETAL: Denies back or neck pain. Denies joint pain or swelling. Lower leg swelling bilaterally. SKIN: Denies rash or skin lesions. NEUROLOGICAL: Denies LOC or altered mental status. Denies sensory loss or motor deficits. ALL OTHER SYSTEMS REVIEWED WITH AND NEGATIVE. -: Yes ROS unobtainable due to patient's medical condition Physical Exam - Vital signs Vitals: Temp Pulse Resp BP Pulse Ox 96.4 F L 115 H 22 H 108/55 L 96 02/22/18 09:33 02/22/18 09:33 02/22/18 09:33 02/22/18 09:33 02/22/18 09:33 Interpretation: Hypotensive, Tachycardic. No: Hypoxic, Febrile - Notes Notes: PHYSICAL EXAMINATION: GENERAL: Patient is in a wheelchair and unable to stand or transfer on his own. Requires assistance. Obviously very weak. Seems to follow commands as if he understands what is being said to him. HEAD: Atraumatic, normocephalic. EYES: Pupils equal round and reactive to light, extraocular movements intact. ENT: oropharynx clear without exudates. Moist mucous dry. NECK: Normal range of motion, supple. LUNGS: Breath sounds clear and equal bilaterally. Decreased breath sounds bilaterally. HEART: Regular rate and rhythm without murmurs. Heart rate 100 at the bedside by me. ABDOMEN: Soft, nontender. No guarding or rebound. No masses. Small umbilical hernia which is easily reducible. No bruits heard. BACK: No tenderness throughout entire back. EXTREMITIES: Normal range of motion without pain. +1 pretibial pitting edema bilaterally. Negative Homans bilaterally. NEUROLOGICAL: Unable to stand or walk or even transfer without significant assistance. Seems to follow commands such as opening his eyes and sticking out his tongue so he seems to understand what is being read to him. Does not speak and return, most likely secondary to generalized weakness. Awake, somewhat sleepy. PSYCH: Unable to assess SKIN: Warm, dry, no rashes. Course - Re-evaluation Re-evalutation: 02/22/18 14:50 Discussed case with hospitalist on-call and patient will be admitted to ICU. 02/22/18 14:54 Urinalysis looks like a urinary tract infection. Blood work shows significant leukocytosis with a shift. Significant thrombocytopenia, with a significant change from previous CBC just 3 or [address] Renteria will admit the patient to ICU. After a couple of liters of saline, blood pressure increased to above 100 systolic and patient became much more alert and responsive and talkative. Still in quite serious condition, but significant improvement thus far. He has already received antibiotics. - Vital Signs Vital signs: Temp Pulse Resp BP Pulse Ox 96.4 F L 115 H 23 H 109/73 98 02/22/18 09:33 02/22/18 09:33 02/22/18 13:31 02/22/18 13:31 02/22/18 11:20 - Laboratory Result Diagrams: 02/22/18 09:55 02/22/18 09:55 Laboratory results interpreted by me: 02/22/18 02/22/18 02/22/18 09:55 09:55 09:55 WBC 26.0 H RDW 15.3 H Plt Count 11 L* Seg Neuts % (Manual) 96 H Band Neutrophils % 1 L Lymphocytes % (Manual) 2 L Monocytes % (Manual) 1 L Abs Neuts (Manual) 25.2 H PT Carbonic Acid ABG pCO2 ABG pO2 ABG HCO3 ABG Total CO2 Sodium 130.4 L Chloride 96 L Carbon Dioxide 19 L BUN 125 H Creatinine 2.26 H Est GFR ( Amer) 36 L Est GFR (Non-Af Amer) 30 L Glucose 155 H Phosphorus Magnesium Total Bilirubin 6.5 H Direct Bilirubin 5.8 H AST 76 H Alkaline Phosphatase 195 H Creatine Kinase 26 L NT-Pro-B Natriuret Pep 6200 H Albumin 2.9 L Urine Protein Urine Blood Urine Urobilinogen Ur Leukocyte Esterase 02/22/18 02/22/18 02/22/18 09:55 09:55 11:20 WBC RDW Plt Count Seg Neuts % (Manual) Band Neutrophils % Lymphocytes % (Manual) Monocytes % (Manual) Abs Neuts (Manual) PT 15.6 H Carbonic Acid ABG pCO2 ABG pO2 ABG HCO3 ABG Total CO2 Sodium Chloride Carbon Dioxide BUN Creatinine Est GFR ( Amer) Est GFR (Non-Af Amer) Glucose Phosphorus 9.8 H Magnesium 3.4 H Total Bilirubin Direct Bilirubin AST Alkaline Phosphatase Creatine Kinase NT-Pro-B Natriuret Pep Albumin Urine Protein 30 H Urine Blood LARGE H Urine Urobilinogen 8.0 H Ur Leukocyte Esterase LARGE H 02/22/18 12:57 WBC RDW Plt Count Seg Neuts % (Manual) Band Neutrophils % Lymphocytes % (Manual) Monocytes % (Manual) Abs Neuts (Manual) PT Carbonic Acid 0.90 L ABG pCO2 30.0 L ABG pO2 71.3 L ABG HCO3 18.0 L ABG Total CO2 19.0 L Sodium Chloride Carbon Dioxide BUN Creatinine Est GFR ( Amer) Est GFR (Non-Af Amer) Glucose Phosphorus Magnesium Total Bilirubin Direct Bilirubin AST Alkaline Phosphatase Creatine Kinase NT-Pro-B Natriuret Pep Albumin Urine Protein Urine Blood Urine Urobilinogen Ur Leukocyte Esterase - Diagnostic Test Radiology results interpreted by me: 02/22/18 14:51 Chest x-ray shows some consolidation in the right base. CT scan of the abdomen shows debris in both lower lobes, consistent with aspiration, according to the radiologist. Has a cavitary appearance. Critical Care Note - Critical Care Note Total time excluding time spent on procedures (mins): 45 Discharge - Discharge Clinical Impression: Renal insufficiency, Thrombocytopenia, Urinary tract infection Sepsis Qualifiers: Sepsis type: sepsis due to unspecified organism Qualified Code(s): A41.9 - Sepsis, unspecified organism Right lower lobe pneumonia Qualifiers: Pneumonia type: due to unspecified organism Qualified Code(s): J18.1 - Lobar pneumonia, unspecified organism Condition: Serious Disposition: ADMITTED INPATIENT Admitting Provider: Hospitalist Unit Admitted: ICU
[2018-02-22 12:14] LABS: URINE AMPHETAMINES SCREEN NEGATIVE; URINE BARBITURATES SCREEN NEGATIVE; URINE BENZODIAZEPINES SCREEN NEGATIVE; URINE COCAINE SCREEN NEGATIVE; URINE MARIJUANA (THC) SCREEN NEGATIVE; URINE METHADONE SCREEN NEGATIVE; URINE PHENCYCLIDINE SCREEN NEGATIVE
[2018-02-22] MEDS ORDERED: VANCOMYCIN HCL 0 MG in DEXTROSE 5%-WATER 250 ML IV NR (12:15)
--- NOTE | 2018-02-22 13:04 | EKG REPORT ---
SEVERITY:- ABNORMAL ECG - SINUS TACHYCARDIA PROLONGED QT INTERVAL : Confirmed by: Marcelino Martinez MD 22-Feb-2018 13:03:52
[2018-02-22 13:11] LABS: ARTERIAL BLOOD BASE EXCESS -5.6 mmol/L; ARTERIAL BLOOD O2 SATURATION 94.6 % (94-98); ARTERIAL BLOOD PO2 71.3 mmHg (80-100)
--- NOTE | 2018-02-22 13:17 | RADIOLOGY REPORT (SQ) ---
EXAM DESCRIPTION: CT ABD/PELVIS NO ORAL OR IV COMPLETED DATE/TIME: 02/22/2018 12:42 pm REASON FOR STUDY: Septic, abdominal swelling and generalized tendern COMPARISON: CHEST FILMS 02/22/2018 CT ABDOMEN PELVIS 02/21/2017, 12/30/2016 TECHNIQUE: CT scan of the abdomen and pelvis performed without intravenous or oral contrast. Images reviewed with lung, soft tissue, and bone windows. Reconstructed coronal and sagittal MPR images revi ewed. All images stored on PACS. All CT scanners at this facility use dose modulation, iterative reconstruction, and/or weight based d osing when appropriate to reduce radiation dose to as low as reasonably achievable (ALARA). [facility]: Dose Right [facility]: CareDose [facility]: Dose Right [facility]: Teradose 4D [facility]: Smart [employer] RADIATION DOSE: CT Rad equipment meets quality standard of care and radiation dose reduction techniq ues were employed. CTDIvol: 12.0 mGy. DLP: 692 mGy-cm.mGy. LIMITATIONS: None. FINDINGS: LOWER CHEST: Cavitary infiltrates are present at the right lung base worrisome for pneumon ia, possibly aspiration. There is minimal bandlike airspace disease at the left lung base atelectasis versus pneumonia. No right or left pleural effusion. No pericardial effusion. No cardiomegaly. Small hiatal hernia. NON-CONTRASTED LIVER, SPLEEN, ADRENALS: Evaluation limited by lack of IV contrast. No identified sign ificant masses. PANCREAS: No masses. No peripancreatic inflammatory changes. GALLBLADDER: Multiple stones of the gallbladder. No gallbladder wall thickening or pericholecystic f luid. RIGHT KIDNEY AND URETER: No suspicious masses. Assessment limited by lack of IV contrast. No signif icant calcifications. No hydronephrosis or hydroureter. LEFT KIDNEY AND URETER: No suspicious masses. Assessment limited by lack of IV contrast. No signifi cant calcifications. No hydronephrosis or hydroureter. AORTA AND RETROPERITONEUM: No aneurysm. No retroperitoneal masses or adenopathy. BOWEL AND PERITONEAL CAVITY: No obvious masses or inflammatory changes. No free fluid. APPENDIX: Normal. PELVIS, BLADDER, AND ABDOMINAL WALL:No abnormal masses. No free fluid. Bladder drained by a Benz cat heter. BONES: No significant findings. OTHER: Findings discussed with Dr. Jewell in the emergency room, 1300 hours 02/22/2018 IMPRESSION: Right basilar cavitary infiltrates, question aspiration pneumonia. COMMENT: Quality ID # [id number]: Final reports with documentation of one or more dose reduction techniques (e.g., Automated exposure control, adjustment of the mA and/or kV according to patient size, use of iterative reconstruction technique) TECHNICAL DOCUMENTATION: JOB ID: [id number] [employer]- All Rights Reserved Reading location - IP/workstation name: [facility]
[2018-02-22 13:18] LABS: ARTERIAL BLOOD FIO2 3L
[2018-02-22 13:23] LABS: PHOSPHORUS 9.8 mg/dL (2.5-4.5)
[2018-02-22] MEDS ORDERED: VANCOMYCIN HCL 1,500 MG in DEXTROSE 5%-WATER 250 ML IV ONE (13:30)
[2018-02-22] MEDS ORDERED: ONDANSETRON HCL INJ/PF 4 MG/2 ML SDV IV PRN (13:49)
[2018-02-22] MEDS ORDERED: LEVALBUTEROL HCL NEB 1.25 MG/3 ML AMPUL NEB PRN (13:49)
--- NOTE | 2018-02-22 14:30 | PDOC H&P ---
History of Present Illness Admission Date/PCP: DORIAN BAUMANN NP History of Present Illness: 57 year old male Past medical history: Loculated right-sided pleural effusion secondary to pneumonia treated at [facility] in December 2016 Hyperlipidemia Chronic neck and back pain Prior tobacco dependence Presented to the emergency room this morning after being referred from his primary care's office for low blood pressures. The patient's family reported that he had been short of breath for the past 2-3 days with bilateral lower extremity and abdominal swelling. He also had generalized weakness and difficulty with ambulation secondary to weakness. He quit smoking 2 months ago. Upon admission he was quite lethargic and was initially given some Narcan. He was found to have sepsis acute renal failure urinary tract infection and a right lower lobe infiltrate. He was given aggressive IV fluid resuscitation and antibiotics. When I saw him around 1:30 PM the patient was awake and alert he complained of some low back pain. Denied any dysuria diarrhea or rectal pain. Past Medical History Cardiac Medical History: Reports: Hyperlipidema Pulmonary Medical History: Reports: Pneumonia Social History Smoking Status: Former Smoker Drugs: None Hx Prescription Drug Abuse: No Family History Family History: COPD, Hypertension Parental Family History Reviewed: Yes Children Family History Reviewed: Yes Sibling(s) Family History Reviewed.: Yes Medication/Allergy Home Medications: Naproxen [Naprosyn 250 mg Tablet] 500 mg PO Q12HP PRN 12/29/16 Allergies/Adverse Reactions: No Known Allergies Allergy (Verified 02/22/18 09:32) Review of Systems Constitutional: PRESENT: weakness Ears: ABSENT: hearing changes Nose, Mouth, and Throat: PRESENT: sore throat Cardiovascular: PRESENT: edema Gastrointestinal: PRESENT: bloating. ABSENT: vomiting Genitourinary: ABSENT: dysuria Musculoskeletal: ABSENT: deformity Integumentary: ABSENT: rash Neurological: PRESENT: weakness. ABSENT: focal weakness Psychiatric: ABSENT: hallucinations Endocrine: ABSENT: cold intolerance Physical Exam Vital Signs: Temp Pulse Resp BP Pulse Ox 96.4 F L 115 H 23 H 104/64 98 02/22/18 09:33 02/22/18 09:33 02/22/18 12:01 02/22/18 12:01 02/22/18 11:20 Intake & Output 02/21/18 02/22/18 02/23/18 06:59 06:59 06:59 Output Total 80 Balance -80 Weight 81 kg General appearance: PRESENT: no acute distress Eye exam: PRESENT: conjunctiva pink, EOMI Ear exam: PRESENT: normal external ear exam Mouth exam: PRESENT: neck supple Teeth exam: PRESENT: edentulous Neck exam: ABSENT: tenderness, tracheal deviation Respiratory exam: PRESENT: crackles, rhonchi, symmetrical, unlabored Cardiovascular exam: PRESENT: RRR GI/Abdominal exam: PRESENT: normal bowel sounds, soft. ABSENT: guarding, rebound, tenderness Rectal exam: PRESENT: normal inspection, normal rectal tone. ABSENT: fecal impaction, hemorrhoids, mass, prostate enlargement, prostate tenderness, tenderness Gentrourinary exam: PRESENT: indwelling catheter. ABSENT: scrotal swelling, testicular tenderness, urethral discharge Extremities exam: ABSENT: calf tenderness, pedal edema Musculoskeletal exam: PRESENT: normal inspection Neurological exam: PRESENT: alert, awake, oriented to person, oriented to place , oriented to time Psychiatric exam: PRESENT: normal mood Skin exam: ABSENT: rash, vesicles Results Laboratory Results: 02/22/18 09:55 02/22/18 09:55 02/22/18 02/22/18 02/22/18 09:55 09:55 09:55 WBC 26.0 H RBC 5.20 Hgb 14.5 Hct 42.6 MCV 82 D MCH 27.9 MCHC 34.0 RDW 15.3 H Plt Count 11 L* Seg Neutrophils % Not Reportable Lymphocytes % Not Reportable Monocytes % Not Reportable Eosinophils % Not Reportable Basophils % Not Reportable Absolute Neutrophils Not Reportable Absolute Lymphocytes Not Reportable Absolute Monocytes Not Reportable Absolute Eosinophils Not Reportable Absolute Basophils Not Reportable Sodium 130.4 L Potassium 5.0 Chloride 96 L Carbon Dioxide 19 L Anion Gap 15 BUN 125 H Creatinine 2.26 H Est GFR ( Amer) 36 L Est GFR (Non-Af Amer) 30 L Glucose 155 H Lactic Acid 2.0 Calcium 8.8 Total Bilirubin 6.5 H AST 76 H ALT 66 Alkaline Phosphatase 195 H Ammonia Total Protein 7.0 Albumin 2.9 L Urine Color Urine Appearance Urine pH Ur Specific [place] Urine Protein Urine Glucose (UA) Urine Ketones Urine Blood Urine Nitrite Ur Leukocyte Esterase Urine WBC (Auto) Urine RBC (Auto) 02/22/18 02/22/18 09:55 11:20 WBC RBC Hgb Hct MCV MCH MCHC RDW Plt Count Seg Neutrophils % Lymphocytes % Monocytes % Eosinophils % Basophils % Absolute Neutrophils Absolute Lymphocytes Absolute Monocytes Absolute Eosinophils Absolute Basophils Sodium Potassium Chloride Carbon Dioxide Anion Gap BUN Creatinine Est GFR ( Amer) Est GFR (Non-Af Amer) Glucose Lactic Acid Calcium Total Bilirubin AST ALT Alkaline Phosphatase Ammonia 16.8 Total Protein Albumin Urine Color DARK YELLOW Urine Appearance CLOUDY Urine pH 6.0 Ur Specific [place] 1.015 Urine Protein 30 H Urine Glucose (UA) NEGATIVE Urine Ketones NEGATIVE Urine Blood LARGE H Urine Nitrite NEGATIVE Ur Leukocyte Esterase LARGE H Urine WBC (Auto) 19 Urine RBC (Auto) 7 02/22/18 02/22/18 09:55 09:55 Creatine Kinase 26 L CK-MB (CK-2) 0.66 Troponin I < 0.012 NT-Pro-B Natriuret Pep 6200 H Impressions: Chest X-Ray 02/22/18 09:47 IMPRESSION: Persisting consolidation right lung base, slightly improved compared to films from December. No current plain film evidence of pulmonary edema Head CT 02/22/18 11:27 IMPRESSION: NORMAL BRAIN CT WITHOUT CONTRAST. EVIDENCE OF ACUTE STROKE: NO. Assessment & Plan - Diagnosis (1) Acute renal failure Is this a current diagnosis for this admission?: Yes Plan: Secondary to sepsis. Stop naproxen. Avoid nephrotoxic agents. Continue IV fluids. (2) Right lower lobe pneumonia Qualifiers: Pneumonia type: due to unspecified organism Qualified Code(s): J18.1 - Lobar pneumonia, unspecified organism Is this a current diagnosis for this admission?: Yes Plan: Started on vancomycin and meropenem. Follow-up on blood and sputum cultures. (3) Sepsis Qualifiers: Sepsis type: sepsis due to unspecified organism Qualified Code(s): A41.9 - Sepsis, unspecified organism Is this a current diagnosis for this admission?: Yes Plan: The patient has leukocytosis, Monia UTI severe thrombocytopenia and relative hypotension secondary to sepsis. Follow-up on cultures. Antibiotics as above. (4) Thrombocytopenia Is this a current diagnosis for this admission?: Yes Plan: [place] secondary to sepsis. Repeat CBC stat. Hematology consult. (5) Urinary tract infection Is this a current diagnosis for this admission?: Yes Plan: Follow-up on cultures. Antibiotics as above. (6) Constipation Is this a current diagnosis for this admission?: Yes Plan: Stool softeners and laxatives as needed. - Time Time Spent: Greater than 70 Minutes
[2018-02-22 15:24] LABS: HEMATOCRIT 38.5 % (37.9-51.0); MEAN CORPUSCULAR HEMOGLOBIN 28.1 pg (27.0-33.4); MEAN CORPUSCULAR HGB CONC 33.8 g/dL (32.0-36.0); MEAN CORPUSCULAR VOLUME 83 fl (80-97); RED BLOOD COUNT 4.62 10^6/uL (4.35-5.55); RED CELL DISTRIBUTION WIDTH 15.3 % (11.5-14.0); WHITE BLOOD COUNT 19.9 10^3/uL (4.0-10.5)
[2018-02-22 15:54] LABS: PLATELET COUNT 8 10^3/uL (150-450)
[2018-02-22] MEDS: LEVALBUTEROL HCL NEB 0.63 MG/3 ML AMPUL NEB SCH ×2 (16:04→20:40)
[2018-02-22] MEDS ORDERED: NORMAL SALINE 1000 ML 1,000 ML IV PRN (16:46)
[2018-02-22] MEDS ORDERED: METHYLPREDNISOLONE INJ 125 MG/2 ML SDV IV ONE (17:00)
--- NOTE | 2018-02-22 17:22 | PDOC CONSULTATION ---
Consultation Consult Date: 02/22/18 Consult reason:: Hematology Consultation was requested for patient with severe thrombocytopenia and sepsis. Rule out TTP. History of Present Illness Admission Date/PCP: 02/22/18 13:58 DORIAN BAUMANN NP History of Present Illness: Mr. Castro is a 57 year old male who presented to the emergency room this morning after being referred from his primary care's office for low blood pressures. The patient's family reported that he had been short of breath for the past 2-3 days with bilateral lower extremity and abdominal swelling. He also had generalized weakness and difficulty with ambulation secondary to weakness. He quit smoking 2 months ago. Upon admission he was quite lethargic and was initially given some Narcan. He was found to have sepsis acute renal failure urinary tract infection and a right lower lobe infiltrate. He was given aggressive IV fluid resuscitation and antibiotics. Currently, he is able to answer questions, but is confused and is unable to answer everything. He complains of chest pain and decreased appetite. Constipation, some dysuria. He is not oriented to time. No family is at bedside. Nurses report that he is to be transferred to the ICU shortly. Past Medical History Past Medical History: All from past records. Patient unable to answer any of these questions. Cardiac Medical History: Reports: Hyperlipidema Pulmonary Medical History: Reports: Asthma - ? Not sure if asthmatic, but uses a pro-air inhaler., Pneumonia Endocrine Medical History: Denies: Diabetes Mellitus Type 1, Diabetes Mellitus Type 2 Social History Information Source: Patient Occupation: He tells me he has 5 children and 4 grand children. He is . Was smoking and using EtOH 1 year ago. Smoking Status: Former Smoker Number of Years Smokin Frequency of Alcohol Use: None Hx Recreational Drug Use: No Drugs: None Hx Prescription Drug Abuse: No Family History Family History: COPD, Hypertension Parental Family History Reviewed: Yes - Mother and Father both when patient was 1 or 2 years old. Children Family History Reviewed: No Sibling(s) Family History Reviewed.: No Medication/Allergy Home Medications: Albuterol Sulfate [Proair HFA] 2 puff IH Q6HP PRN 02/22/18 Finasteride [Proscar 5 mg Tablet] 5 mg PO DAILY 02/22/18 Naproxen [Naprosyn] 500 mg PO BID 02/22/18 Tramadol HCl [Ultram 50 mg Tablet] 50 mg PO Q6HP PRN 02/22/18 Allergies/Adverse Reactions: No Known Allergies Allergy (Verified 02/22/18 09:32) Review of Systems ROS unobtainable: Other - Difficult due to mental status, but some questions were answered. Constitutional: PRESENT: fever(s). ABSENT: headache(s) Eyes: ABSENT: visual disturbances Ears: ABSENT: hearing changes Nose, Mouth, and Throat: ABSENT: sore throat Cardiovascular: PRESENT: chest pain Respiratory: PRESENT: dyspnea. ABSENT: cough Gastrointestinal: PRESENT: constipation, heartburn Genitourinary: PRESENT: dysuria. ABSENT: hematuria Integumentary: ABSENT: rash Endocrine: PRESENT: other - Decreased appetite. Physical Exam Vital Signs: Temp Pulse Resp BP Pulse Ox 97.8 F 110 H 23 H 100/65 98 02/22/18 15:55 02/22/18 16:06 02/22/18 15:55 02/22/18 15:55 02/22/18 15:55 Intake & Output 02/21/18 02/22/18 02/23/18 06:59 06:59 06:59 Output Total 400 Balance -400 General appearance: PRESENT: no acute distress, well-nourished Exam: 57 year old male. Head exam: PRESENT: atraumatic Eye exam: PRESENT: PERRLA Ear exam: PRESENT: normal external ear exam Mouth exam: PRESENT: moist, tongue midline, other - Thrush Neck exam: ABSENT: lymphadenopathy, tenderness Respiratory exam: PRESENT: clear to auscultation jackson, unlabored Cardiovascular exam: PRESENT: RRR. ABSENT: systolic murmur GI/Abdominal exam: PRESENT: normal bowel sounds, soft. ABSENT: tenderness Extremities exam: PRESENT: +1 edema - Bilateral ankles. Musculoskeletal exam: PRESENT: normal inspection Neurological exam: PRESENT: awake, oriented to person. ABSENT: oriented to place, oriented to time, oriented to situation Psychiatric exam: PRESENT: appropriate affect Focused psych exam: ABSENT: pressured speech Skin exam: PRESENT: normal color Results Laboratory Results: 02/22/18 15:04 02/22/18 15:04 02/22/18 02/22/18 15:04 15:04 WBC 19.9 H RBC 4.62 Hgb 13.0 L Hct 38.5 MCV 83 MCH 28.1 MCHC 33.8 RDW 15.3 H Plt Count 8 L* Creatinine 1.78 H Est GFR ( Amer) 48 L Est GFR (Non-Af Amer) 39 L Impressions: Chest X-Ray 02/22/18 09:47 IMPRESSION: Persisting consolidation right lung base, slightly improved compared to films from December. No current plain film evidence of pulmonary edema Head CT 02/22/18 11:27 IMPRESSION: NORMAL BRAIN CT WITHOUT CONTRAST. EVIDENCE OF ACUTE STROKE: NO. Abdomen/Pelvis CT 02/22/18 12:08 IMPRESSION: Right basilar cavitary infiltrates, question aspiration pneumonia. Status: Image reviewed by me Assessment & Plan - Diagnosis (1) Sepsis Qualifiers: Sepsis type: sepsis due to unspecified organism Qualified Code(s): A41.9 - Sepsis, unspecified organism Is this a current diagnosis for this admission?: Yes Plan: Agree with antibiotics. I will add Diflucan to cover possibility of fungal. (2) Thrombocytopenia Is this a current diagnosis for this admission?: Yes Plan: I reviewed the perif. Blood smear. This showed macrocytic hyperchromic RBCs without obvious schistocytes. Occasional tear drop dell. WBCs with increased PMNs and some Pelger Huet anomalies. His platelets were markedly decreased in number but normal in morphology. Estimate is 10-20. All of this is consistent with consumption from Sepsis. I do NOT see evidence of TTP. I would hold all anticoagulants until PLT>50. - Plan Summary Plan Summary: I discussed his care with Dr. Shah. I will be happy to follow with you. OK to transfuse platelets for any signs of bleeding or in preparation for procedures.
[2018-02-22] MEDS ORDERED: MEROPENEM 1 GM in NORMAL SALINE 50 ML IV SCH (18:00)
[2018-02-22] MEDS: MEROPENEM 1 GM in NORMAL SALINE 100 ML IV SCH (18:09)
[2018-02-22] MEDS: DOCUSATE SODIUM 100 MG CAPSULE PO SCH (18:12)
[2018-02-22] MEDS: LEVOFLOXACIN 750 MG/D5W RTU 750 MG/150 ML RTUPB IV SCH (19:32)
[2018-02-22 19:45] LABS: HEMATOCRIT 37.3 % (37.9-51.0); HEMOGLOBIN 12.6 g/dL (13.5-17.0); MEAN CORPUSCULAR HEMOGLOBIN 27.8 pg (27.0-33.4); MEAN CORPUSCULAR HGB CONC 33.7 g/dL (32.0-36.0); MEAN CORPUSCULAR VOLUME 83 fl (80-97); RED BLOOD COUNT 4.52 10^6/uL (4.35-5.55); RED CELL DISTRIBUTION WIDTH 15.6 % (11.5-14.0); WHITE BLOOD COUNT 27.8 10^3/uL (4.0-10.5)
[2018-02-22 20:16] LABS: ABSOLUTE LYMPHOCYTES# (MANUAL) 0.6 10^3/uL (0.5-4.7); ABSOLUTE MONOCYTES # (MANUAL) 1.1 10^3/uL (0.1-1.4); ABSOLUTE NEUTROPHILS# (MANUAL) 25.3 10^3/uL (1.7-8.2); BASOPHILS % (MANUAL) 0 % (0-2); EOSINOPHILS % (MANUAL) 3 % (0-6); LYMPHOCYTES % (MANUAL) 2 % (13-45); MONOCYTES % (MANUAL) 4 % (3-13); SEGMENTED NEUTROPHILS % (MAN) 91 % (42-78); TOTAL CELLS COUNTED 100
[2018-02-22 20:17] LABS: ANISOCYTOSIS SLIGHT; PLATELET COMMENT DECREASED; TOXIC GRANULATION SLIGHT
[2018-02-22 20:20] LABS: PLATELET COUNT 9 10^3/uL (150-450)
[2018-02-22] MEDS: PANTOPRAZOLE SODIUM 40 MG VIAL IV SCH (21:49)
--- NOTE | 2018-02-22 23:59 | RADIOLOGY REPORT (SQ) ---
EXAM DESCRIPTION: U/S ABDOMEN COMPLETE W/O DOP CLINICAL HISTORY: 57 years, Male, Sepsis, abnormal LFTs COMPARISON: CT, same day. LIMITATIONS: Bowel artifact. FINDINGS: Cholelithiasis. Negative sonographic Dougherty's test. Hepatobiliary ductal system appears unremarkable with 0.3 cm common bile duct diameter. 11 cm right kidney, 13 cm left kidney, spleen, partially obscured liver, partially obscured pancreas/aorta, appear otherwise unremarkable. No ascites. IMPRESSION: No acute findings. Cholelithiasis. Limitation.
[2018-02-23] MEDS: LEVALBUTEROL HCL NEB 0.63 MG/3 ML AMPUL NEB SCH ×4 (03:12→20:51)
[2018-02-23 04:18] LABS: HEMATOCRIT 36.9 % (37.9-51.0); HEMOGLOBIN 12.5 g/dL (13.5-17.0); MEAN CORPUSCULAR HEMOGLOBIN 27.9 pg (27.0-33.4); MEAN CORPUSCULAR HGB CONC 33.8 g/dL (32.0-36.0); MEAN CORPUSCULAR VOLUME 83 fl (80-97); RED BLOOD COUNT 4.47 10^6/uL (4.35-5.55); RED CELL DISTRIBUTION WIDTH 15.5 % (11.5-14.0); WHITE BLOOD COUNT 25.7 10^3/uL (4.0-10.5)
[2018-02-23 04:27] LABS: INTERNATIONAL RATION (INR) 1.31; PARTIAL THROMBOPLASTIN TIME 29.4 SEC (23.5-35.8); PROTHROMBIN TIME 17.1 SEC (11.4-15.4)
[2018-02-23 04:33] LABS: ALANINE AMINOTRANSFERASE 71 U/L (21-72); ALBUMIN 2.4 g/dL (3.5-5.0); ALKALINE PHOSPHATASE 143 U/L (38-126); ANION GAP 11 (5-19); ASPARTATE AMINO TRANSFERASE 83 U/L (17-59); BILIRUBIN,DIRECT 3.7 mg/dL (0.0-0.4); BILIRUBIN,TOTAL 4.3 mg/dL (0.2-1.3); CALCIUM 8.1 mg/dL (8.4-10.2); CARBON DIOXIDE 18 mmol/L (22-30); CHLORIDE 107 mmol/L (98-107); GLUCOSE 228 mg/dL (75-110); POTASSIUM 5.2 mmol/L (3.6-5.0); TOTAL PROTEIN 6.1 g/dL (6.3-8.2)
[2018-02-23 04:44] LABS: ABSOLUTE MONOCYTES # (MANUAL) 0.5 10^3/uL (0.1-1.4); ABSOLUTE NEUTROPHILS# (MANUAL) 25.2 10^3/uL (1.7-8.2); BASOPHILS % (MANUAL) 0 % (0-2); EOSINOPHILS % (MANUAL) 0 % (0-6); LYMPHOCYTES % (MANUAL) 0 % (13-45); MONOCYTES % (MANUAL) 2 % (3-13); SEGMENTED NEUTROPHILS % (MAN) 98 % (42-78); TOTAL CELLS COUNTED 100
[2018-02-23 04:45] LABS: DIRECT LDL < 30 mg/dL (<100); TRIGLYCERIDES 554 mg/dL (<150)
[2018-02-23 04:48] LABS: BLOOD UREA NITROGEN 87 mg/dL (7-20); PHOSPHORUS 5.8 mg/dL (2.5-4.5)
[2018-02-23 04:49] LABS: ANISOCYTOSIS SLIGHT; OVALOCYTES SLIGHT; PLATELET COMMENT DECREASED; POIKILOCYTOSIS SLIGHT; POLYCHROMASIA SLIGHT; TOXIC GRANULATION 1+
[2018-02-23 04:51] LABS: PLATELET COUNT 9 10^3/uL (150-450)
[2018-02-23] MEDS: MEROPENEM 1 GM in NORMAL SALINE 100 ML IV SCH ×2 (06:05→17:14)
[2018-02-23] MEDS: NORMAL SALINE 1000 ML 1,000 ML IV PRN (06:48)
[2018-02-23] MEDS ORDERED: NORMAL SALINE 250 ML IV PRN ×2 (07:39)
[2018-02-23] MEDS ORDERED: BISACODYL 5 MG TABEC PO PRN (08:13)
[2018-02-23] MEDS ORDERED: NORMAL SALINE 1000 ML 1,000 ML IV PRN (08:15)
--- NOTE | 2018-02-23 08:41 | RADIOLOGY REPORT (SQ) ---
EXAM DESCRIPTION: CHEST SINGLE VIEW COMPLETED DATE/TIME: 02/23/2018 8:14 am REASON FOR STUDY: sepsis COMPARISON: Chest films 12/29/2016, 12/30/2016, 01/12/2017, 02/22/2018 EXAM PARAMETERS: NUMBER OF VIEWS: One view. TECHNIQUE: Single frontal radiographic view of the chest acquired. RADIATION DOSE: NA LIMITATIONS: None. FINDINGS: LUNGS AND PLEURA: Low lung volumes with bibasilar airspace disease atelectasis versus pneu monia. This is similar compared to 02/22/2018. No alveolar perihilar infiltrates worrisome for pulmonary edema. No pleural effusion. No pneumothor ax. MEDIASTINUM AND HILAR STRUCTURES: No masses. Contour normal. HEART AND VASCULAR STRUCTURES: Heart normal in size. Normal vasculature. BONES: No acute findings. HARDWARE: None in the chest. OTHER: No other significant finding. IMPRESSION: Persistent bibasilar consolidation atelectasis versus pneumonia TECHNICAL DOCUMENTATION: JOB ID: [id number] [employer]- All Rights Reserved Reading location - IP/workstation name: [email or web address]
[2018-02-23] MEDS ORDERED: SODIUM POLYSTYRENE SULFONATE 15 GM/60 ML PO ONE ×2 (09:00)
[2018-02-23] MEDS: DOCUSATE SODIUM 100 MG CAPSULE PO SCH ×2 (10:25→17:14)
[2018-02-23] MEDS: PANTOPRAZOLE SODIUM 40 MG VIAL IV SCH ×2 (10:26→22:13)
[2018-02-23 13:18] LABS: HEMATOCRIT 36.7 % (37.9-51.0); HEMOGLOBIN 12.3 g/dL (13.5-17.0); MEAN CORPUSCULAR HEMOGLOBIN 27.7 pg (27.0-33.4); MEAN CORPUSCULAR HGB CONC 33.5 g/dL (32.0-36.0); MEAN CORPUSCULAR VOLUME 83 fl (80-97); RED BLOOD COUNT 4.43 10^6/uL (4.35-5.55); RED CELL DISTRIBUTION WIDTH 15.6 % (11.5-14.0)
[2018-02-23 13:50] LABS: PLATELET COUNT 33 10^3/uL (150-450)
[2018-02-23 13:54] LABS: ABSOLUTE LYMPHOCYTES# (MANUAL) 0.3 10^3/uL (0.5-4.7); ABSOLUTE MONOCYTES # (MANUAL) 1.3 10^3/uL (0.1-1.4); ABSOLUTE NEUTROPHILS# (MANUAL) 30.2 10^3/uL (1.7-8.2); BAND NEUTROPHILS % (MANUAL) 1 % (3-5); BASOPHILS % (MANUAL) 0 % (0-2); EOSINOPHILS % (MANUAL) 0 % (0-6); LYMPHOCYTES % (MANUAL) 1 % (13-45); MONOCYTES % (MANUAL) 4 % (3-13); SEGMENTED NEUTROPHILS % (MAN) 94 % (42-78); TOTAL CELLS COUNTED 100
[2018-02-23 13:56] LABS: ANISOCYTOSIS SLIGHT; TOXIC GRANULATION 1+; TOXIC VACUOLATION PRESENT
[2018-02-23 13:57] LABS: PLATELET COMMENT DECREASED
[2018-02-23 13:59] LABS: WHITE BLOOD COUNT 31.8 10^3/uL (4.0-10.5)
[2018-02-23] MEDS ORDERED: VANCOMYCIN HCL 1,250 MG in DEXTROSE 5%-WATER 250 ML IV SCH (14:00)
--- NOTE | 2018-02-23 16:09 | PDOC PROGRESS REPORT ---
Subjective Progress Note for:: 02/23/18 Subjective:: 57-year-old gentleman who presented with sepsis secondary to pneumonia and UTI. Blood cultures positive for beta hemolytic strep group B. Severe thrombocytopenia and hyperbilirubinemia secondary to sepsis. These are improving. He received 1 pool of platelets this morning. TTP was ruled out. He can be transferred out of the intensive care unit. He was sitting up eating breakfast when I saw him this morning. He reports some constipation. Reason For Visit: SEPSIS DUE TO PNEUMONIA AND UTI Physical Exam Vital Signs: Temp Pulse Resp BP Pulse Ox 97.2 F 98 22 H 117/81 100 02/23/18 14:00 02/23/18 14:13 02/23/18 14:17 02/23/18 14:17 02/23/18 14:17 Intake & Output 02/22/18 02/23/18 02/24/18 06:59 06:59 06:59 Intake Total 1734 554 Output Total 2004 2325 Balance -271 -521 Weight 91.3 kg General appearance: PRESENT: no acute distress Eye exam: PRESENT: conjunctiva pink, PERRLA Mouth exam: PRESENT: moist Neck exam: ABSENT: tenderness, tracheal deviation Respiratory exam: PRESENT: crackles, rhonchi, unlabored. ABSENT: accessory muscle use Cardiovascular exam: PRESENT: RRR GI/Abdominal exam: PRESENT: normal bowel sounds, soft. ABSENT: tenderness Rectal exam: PRESENT: deferred Neurological exam: PRESENT: alert, awake Psychiatric exam: PRESENT: normal mood Results Laboratory Results: 02/23/18 13:04 02/23/18 03:54 02/22/18 02/22/18 02/22/18 15:04 15:04 19:30 WBC 19.9 H 27.8 H RBC 4.62 4.52 Hgb 13.0 L 12.6 L Hct 38.5 37.3 L MCV 83 83 MCH 28.1 27.8 MCHC 33.8 33.7 RDW 15.3 H 15.6 H Plt Count 8 L* 9 L* Seg Neutrophils % Not Reportable Lymphocytes % Not Reportable Monocytes % Not Reportable Eosinophils % Not Reportable Basophils % Not Reportable Absolute Neutrophils Not Reportable Absolute Lymphocytes Not Reportable Absolute Monocytes Not Reportable Absolute Eosinophils Not Reportable Absolute Basophils Not Reportable Sodium Potassium Chloride Carbon Dioxide Anion Gap BUN Creatinine 1.78 H Est GFR ( Amer) 48 L Est GFR (Non-Af Amer) 39 L Glucose Calcium Phosphorus Magnesium Total Bilirubin AST ALT Alkaline Phosphatase Ammonia Total Protein Albumin Triglycerides Cholesterol LDL Cholesterol Direct VLDL Cholesterol HDL Cholesterol TSH Blood Type Antibody Screen 02/23/18 02/23/18 02/23/18 03:54 03:54 03:54 WBC 25.7 H RBC 4.47 Hgb 12.5 L Hct 36.9 L MCV 83 MCH 27.9 MCHC 33.8 RDW 15.5 H Plt Count 9 L* Seg Neutrophils % Not Reportable Lymphocytes % Not Reportable Monocytes % Not Reportable Eosinophils % Not Reportable Basophils % Not Reportable Absolute Neutrophils Not Reportable Absolute Lymphocytes Not Reportable Absolute Monocytes Not Reportable Absolute Eosinophils Not Reportable Absolute Basophils Not Reportable Sodium 136.0 L Potassium 5.2 H Chloride 107 Carbon Dioxide 18 L Anion Gap 11 BUN 87 H D Creatinine 1.42 H Est GFR ( Amer) > 60 Est GFR (Non-Af Amer) 51 L Glucose 228 H Calcium 8.1 L Phosphorus 5.8 H D Magnesium 2.9 H Total Bilirubin 4.3 H AST 83 H ALT 71 Alkaline Phosphatase 143 H Ammonia 12.6 Total Protein 6.1 L Albumin 2.4 L Triglycerides 554 H Cholesterol 167.70 LDL Cholesterol Direct < 30 VLDL Cholesterol UNABLE TO CALCULATE HDL Cholesterol 24 L TSH Blood Type Antibody Screen 02/23/18 02/23/18 02/23/18 03:54 08:28 08:28 WBC RBC Hgb Hct MCV MCH MCHC RDW Plt Count Seg Neutrophils % Lymphocytes % Monocytes % Eosinophils % Basophils % Absolute Neutrophils Absolute Lymphocytes Absolute Monocytes Absolute Eosinophils Absolute Basophils Sodium Potassium Chloride Carbon Dioxide Anion Gap BUN Creatinine Est GFR ( Amer) Est GFR (Non-Af Amer) Glucose Calcium Phosphorus Magnesium Total Bilirubin AST ALT Alkaline Phosphatase Ammonia Total Protein Albumin Triglycerides Cholesterol LDL Cholesterol Direct VLDL Cholesterol HDL Cholesterol TSH 0.64 Blood Type A POSITIVE Cancelled Antibody Screen NEGATIVE Cancelled 02/23/18 13:04 WBC 31.8 H* RBC 4.43 Hgb 12.3 L Hct 36.7 L MCV 83 MCH 27.7 MCHC 33.5 RDW 15.6 H Plt Count 33 L D Seg Neutrophils % Not Reportable Lymphocytes % Not Reportable Monocytes % Not Reportable Eosinophils % Not Reportable Basophils % Not Reportable Absolute Neutrophils Not Reportable Absolute Lymphocytes Not Reportable Absolute Monocytes Not Reportable Absolute Eosinophils Not Reportable Absolute Basophils Not Reportable Sodium Potassium Chloride Carbon Dioxide Anion Gap BUN Creatinine Est GFR ( Amer) Est GFR (Non-Af Amer) Glucose Calcium Phosphorus Magnesium Total Bilirubin AST ALT Alkaline Phosphatase Ammonia Total Protein Albumin Triglycerides Cholesterol LDL Cholesterol Direct VLDL Cholesterol HDL Cholesterol TSH Blood Type Antibody Screen 02/23/18 03:54 NT-Pro-B Natriuret Pep 5580 H Impressions: Abdomen Ultrasound 02/22/18 00:00 IMPRESSION: No acute findings. Cholelithiasis. Limitation. Head CT 02/22/18 11:27 IMPRESSION: NORMAL BRAIN CT WITHOUT CONTRAST. EVIDENCE OF ACUTE STROKE: NO. Abdomen/Pelvis CT 02/22/18 12:08 IMPRESSION: Right basilar cavitary infiltrates, question aspiration pneumonia. Chest X-Ray 02/23/18 00:00 IMPRESSION: Persistent bibasilar consolidation atelectasis versus pneumonia Assessment & Plan - Diagnosis (1) Acute renal failure Is this a current diagnosis for this admission?: Yes Plan: Secondary to sepsis. Stop naproxen. Avoid nephrotoxic agents. Continue IV fluids. Renal function is improving. (2) Right lower lobe pneumonia Qualifiers: Pneumonia type: due to unspecified organism Qualified Code(s): J18.1 - Lobar pneumonia, unspecified organism Is this a current diagnosis for this admission?: Yes Plan: Day 2 antibiotics, Levaquin, vancomycin and meropenem. Follow-up on blood and sputum cultures. (3) Sepsis Qualifiers: Sepsis type: sepsis due to unspecified organism Qualified Code(s): A41.9 - Sepsis, unspecified organism Is this a current diagnosis for this admission?: Yes Plan: The patient has leukocytosis, Monia UTI severe thrombocytopenia and relative hypotension secondary to sepsis. Follow-up on cultures. Antibiotics as above. (4) Thrombocytopenia Is this a current diagnosis for this admission?: Yes Plan: Secondary to sepsis. TTP ruled out. Continue to monitor platelets. Hematology consult. (5) Urinary tract infection Is this a current diagnosis for this admission?: Yes Plan: Follow-up on cultures. Antibiotics as above. (6) Constipation Is this a current diagnosis for this admission?: Yes Plan: Stool softeners and laxatives. - Time Time Spent with patient: 35 or more minutes
[2018-02-23] MEDS: LEVOFLOXACIN 750 MG/D5W RTU 750 MG/150 ML RTUPB IV SCH (17:14)
[2018-02-23] MEDS: SENNOSIDES/DOCUSATE 8.6-50 MG 1 EACH TABLET PO SCH (22:13)
[2018-02-24] MEDS: LEVALBUTEROL HCL NEB 0.63 MG/3 ML AMPUL NEB SCH ×4 (01:52→20:30)
[2018-02-24] MEDS: MEROPENEM 1 GM in NORMAL SALINE 100 ML IV SCH ×3 (02:05→16:53)
[2018-02-24] MEDS ORDERED: VANCOMYCIN HCL INJ 1000 MG VIAL ONE (03:08)
[2018-02-24] MEDS: VANCOMYCIN HCL 1,000 MG in DEXTROSE 5%-WATER 250 ML IV SCH ×2 (03:29→14:24)
[2018-02-24 05:17] LABS: FIBRINOGEN 241 mg/dL (209-497); HEMATOCRIT 32.6 % (37.9-51.0); INTERNATIONAL RATION (INR) 1.18; MEAN CORPUSCULAR HEMOGLOBIN 28.1 pg (27.0-33.4); MEAN CORPUSCULAR HGB CONC 33.6 g/dL (32.0-36.0); MEAN CORPUSCULAR VOLUME 84 fl (80-97); PARTIAL THROMBOPLASTIN TIME 28.9 SEC (23.5-35.8); PROTHROMBIN TIME 15.8 SEC (11.4-15.4); RED CELL DISTRIBUTION WIDTH 15.9 % (11.5-14.0); WHITE BLOOD COUNT 26.1 10^3/uL (4.0-10.5)
[2018-02-24 05:50] LABS: ALANINE AMINOTRANSFERASE 66 U/L (21-72); ALBUMIN 2.3 g/dL (3.5-5.0); ALKALINE PHOSPHATASE 123 U/L (38-126); ANION GAP 9 (5-19); ASPARTATE AMINO TRANSFERASE 60 U/L (17-59); BILIRUBIN,DIRECT 1.2 mg/dL (0.0-0.4); BILIRUBIN,TOTAL 1.5 mg/dL (0.2-1.3); BLOOD UREA NITROGEN 54 mg/dL (7-20); CALCIUM 8.1 mg/dL (8.4-10.2); CARBON DIOXIDE 21 mmol/L (22-30); CHLORIDE 111 mmol/L (98-107); GLUCOSE 218 mg/dL (75-110); PHOSPHORUS 3.3 mg/dL (2.5-4.5); POTASSIUM 4.2 mmol/L (3.6-5.0); SODIUM 140.8 mmol/L (137-145); TOTAL PROTEIN 5.5 g/dL (6.3-8.2)
[2018-02-24 05:51] LABS: PLATELET COUNT 19 10^3/uL (150-450)
[2018-02-24] MEDS: LACTOBACILLUS ACIDOPHILUS 250 MG TAB PO SCH ×2 (11:15→16:51)
[2018-02-24] MEDS: DOCUSATE SODIUM 100 MG CAPSULE PO SCH ×2 (11:16→16:52)
[2018-02-24] MEDS: PANTOPRAZOLE SODIUM 40 MG VIAL IV SCH ×2 (11:17→21:50)
--- NOTE | 2018-02-24 12:34 | PDOC PROGRESS REPORT ---
Subjective Progress Note for:: 02/24/18 Subjective:: Patient states that he is feeling much better today. His family is at bedside. He is trying to eat and walk in [place] when allowed. No new complaints. ROS: No bleeding, no nausea, constipation, dyspnea. Reason For Visit: SEPSIS DUE TO PNEUMONIA AND UTI Physical Exam Vital Signs: Temp Pulse Resp BP Pulse Ox 98.4 F 106 H 20 115/75 97 02/24/18 07:51 02/24/18 08:24 02/24/18 08:24 02/24/18 07:51 02/24/18 08:24 Intake & Output 02/23/18 02/24/18 02/25/18 06:59 06:59 06:59 Intake Total 1733 2451 Output Total 20045 Balance -271 276 Weight 91.3 kg 94.6 kg General appearance: PRESENT: no acute distress, well-developed, well-nourished Head exam: PRESENT: atraumatic Respiratory exam: PRESENT: clear to auscultation jackson, unlabored Cardiovascular exam: PRESENT: RRR. ABSENT: systolic murmur GI/Abdominal exam: PRESENT: soft. ABSENT: tenderness Extremities exam: ABSENT: pedal edema Neurological exam: PRESENT: alert, awake Psychiatric exam: PRESENT: appropriate affect Focused psych exam: ABSENT: delusional, pressured speech Skin exam: PRESENT: normal color Results Laboratory Results: 02/24/18 04:41 02/24/18 04:41 02/23/18 02/24/18 02/24/18 13:04 04:41 04:41 WBC 31.8 H* 26.1 H RBC 4.43 3.90 L Hgb 12.3 L 11.0 L Hct 36.7 L 32.6 L MCV 83 84 MCH 27.7 28.1 MCHC 33.5 33.6 RDW 15.6 H 15.9 H Plt Count 33 L D 19 L* Seg Neutrophils % Not Reportable Lymphocytes % Not Reportable Monocytes % Not Reportable Eosinophils % Not Reportable Basophils % Not Reportable Absolute Neutrophils Not Reportable Absolute Lymphocytes Not Reportable Absolute Monocytes Not Reportable Absolute Eosinophils Not Reportable Absolute Basophils Not Reportable Sodium 140.8 Potassium 4.2 Chloride 111 H Carbon Dioxide 21 L Anion Gap 9 BUN 54 H Creatinine 1.19 Est GFR ( Amer) > 60 Est GFR (Non-Af Amer) > 60 Glucose 218 H Calcium 8.1 L Phosphorus 3.3 Magnesium 2.6 H Total Bilirubin 1.5 H AST 60 H ALT 66 Alkaline Phosphatase 123 Total Protein 5.5 L Albumin 2.3 L 02/23/18 03:54 NT-Pro-B Natriuret Pep 5580 H Impressions: Abdomen Ultrasound 02/22/18 00:00 IMPRESSION: No acute findings. Cholelithiasis. Limitation. Head CT 02/22/18 11:27 IMPRESSION: NORMAL BRAIN CT WITHOUT CONTRAST. EVIDENCE OF ACUTE STROKE: NO. Abdomen/Pelvis CT 02/22/18 12:08 IMPRESSION: Right basilar cavitary infiltrates, question aspiration pneumonia. Chest X-Ray 02/23/18 00:00 IMPRESSION: Persistent bibasilar consolidation atelectasis versus pneumonia Assessment & Plan - Diagnosis (1) Sepsis Qualifiers: Sepsis type: sepsis due to unspecified organism Qualified Code(s): A41.9 - Sepsis, unspecified organism Is this a current diagnosis for this admission?: Yes Plan: Strep bacteremia. Improving. Continue antibiotics. (2) Thrombocytopenia Is this a current diagnosis for this admission?: Yes Plan: Responded well to steroids which is consistent with sepsis as cause, not ITP. Will continue to monitor. If they decrease again tomorrow will transfuse another unit PLTs. Watch for bleeding. (3) Anemia Qualifiers: Anemia type: other cause Other causes of anemia: chronic disease, other Qualified Code(s): D63.8 - Anemia in other chronic diseases classified elsewhere Is this a current diagnosis for this admission?: Yes Plan: Appears stable. This is multifactoral and should improve over time. Transfuse if HGB <8. Continue to follow. - Plan Summary Plan Summary: I will continue to follow, please call with any questions or concern.
[2018-02-24] MEDS ORDERED: NORMAL SALINE 250 ML IV PRN (12:35)
--- NOTE | 2018-02-24 13:32 | PDOC PROGRESS REPORT ---
Subjective Progress Note for:: 02/24/18 Subjective:: 57-year-old gentleman who presented with sepsis secondary to pneumonia and UTI. Blood cultures positive for beta hemolytic strep group B. Severe thrombocytopenia and hyperbilirubinemia secondary to sepsis. These are improving. He received 1 pool of platelets this morning. TTP was ruled out. No complaints, feels well. Appetite is good. Constipation resolved. Reason For Visit: SEPSIS DUE TO PNEUMONIA AND UTI Physical Exam Vital Signs: Temp Pulse Resp BP Pulse Ox 97.6 F 101 H 18 140/80 H 100 02/24/18 12:39 02/24/18 12:39 02/24/18 12:39 02/24/18 12:39 02/24/18 12:39 Intake & Output 02/23/18 02/24/18 02/25/18 06:59 06:59 06:59 Intake Total 173 2451 350 Output Total 20045 450 Balance -271 276 -100 Weight 91.3 kg 94.6 kg General appearance: PRESENT: no acute distress Head exam: PRESENT: atraumatic, normocephalic Eye exam: PRESENT: conjunctiva pink, EOMI, PERRLA Ear exam: PRESENT: TM's normal bilaterally Mouth exam: PRESENT: neck supple Neck exam: ABSENT: tracheal deviation Respiratory exam: PRESENT: clear to auscultation jackson, symmetrical, unlabored. ABSENT: wheezes Cardiovascular exam: PRESENT: RRR GI/Abdominal exam: PRESENT: normal bowel sounds, soft. ABSENT: tenderness Rectal exam: PRESENT: deferred Extremities exam: ABSENT: calf tenderness, pedal edema Neurological exam: PRESENT: alert, awake Psychiatric exam: PRESENT: normal mood Results Laboratory Results: 02/24/18 04:41 02/24/18 04:41 02/23/18 02/24/18 02/24/18 13:04 04:41 04:41 WBC 31.8 H* 26.1 H RBC 4.43 3.90 L Hgb 12.3 L 11.0 L Hct 36.7 L 32.6 L MCV 83 84 MCH 27.7 28.1 MCHC 33.5 33.6 RDW 15.6 H 15.9 H Plt Count 33 L D 19 L* Seg Neutrophils % Not Reportable Lymphocytes % Not Reportable Monocytes % Not Reportable Eosinophils % Not Reportable Basophils % Not Reportable Absolute Neutrophils Not Reportable Absolute Lymphocytes Not Reportable Absolute Monocytes Not Reportable Absolute Eosinophils Not Reportable Absolute Basophils Not Reportable Sodium 140.8 Potassium 4.2 Chloride 111 H Carbon Dioxide 21 L Anion Gap 9 BUN 54 H Creatinine 1.19 Est GFR ( Amer) > 60 Est GFR (Non-Af Amer) > 60 Glucose 218 H Calcium 8.1 L Phosphorus 3.3 Magnesium 2.6 H Total Bilirubin 1.5 H AST 60 H ALT 66 Alkaline Phosphatase 123 Total Protein 5.5 L Albumin 2.3 L 02/23/18 03:54 NT-Pro-B Natriuret Pep 5580 H Impressions: Abdomen Ultrasound 02/22/18 00:00 IMPRESSION: No acute findings. Cholelithiasis. Limitation. Head CT 02/22/18 11:27 IMPRESSION: NORMAL BRAIN CT WITHOUT CONTRAST. EVIDENCE OF ACUTE STROKE: NO. Abdomen/Pelvis CT 02/22/18 12:08 IMPRESSION: Right basilar cavitary infiltrates, question aspiration pneumonia. Chest X-Ray 02/23/18 00:00 IMPRESSION: Persistent bibasilar consolidation atelectasis versus pneumonia Assessment & Plan - Diagnosis (1) Acute renal failure Is this a current diagnosis for this admission?: Yes Plan: Secondary to sepsis. Stop naproxen. Avoid nephrotoxic agents. Continue IV fluids. Renal function is improving. (2) Right lower lobe pneumonia Qualifiers: Pneumonia type: due to unspecified organism Qualified Code(s): J18.1 - Lobar pneumonia, unspecified organism Is this a current diagnosis for this admission?: Yes Plan: Day 3 antibiotics, Levaquin, vancomycin and meropenem. Follow-up on blood and sputum cultures. (3) Sepsis Qualifiers: Sepsis type: sepsis due to unspecified organism Qualified Code(s): A41.9 - Sepsis, unspecified organism Is this a current diagnosis for this admission?: Yes Plan: The patient has leukocytosis, Monia UTI severe thrombocytopenia and relative hypotension secondary to sepsis. Follow-up on cultures. Antibiotics as above. (4) Thrombocytopenia Is this a current diagnosis for this admission?: Yes Plan: Secondary to sepsis. TTP ruled out. Continue to monitor platelets. Hematology consult appreciated. (5) Urinary tract infection Is this a current diagnosis for this admission?: Yes Plan: Follow-up on cultures. Antibiotics as above. (6) Constipation Is this a current diagnosis for this admission?: Yes Plan: Stool softeners and laxatives- resolved - Time Time Spent with patient: 25-34 minutes
[2018-02-24 14:13] LABS: HEMATOCRIT 35.5 % (37.9-51.0); HEMOGLOBIN 11.7 g/dL (13.5-17.0); MEAN CORPUSCULAR HEMOGLOBIN 27.7 pg (27.0-33.4); MEAN CORPUSCULAR HGB CONC 33.1 g/dL (32.0-36.0); MEAN CORPUSCULAR VOLUME 84 fl (80-97); RED BLOOD COUNT 4.23 10^6/uL (4.35-5.55); WHITE BLOOD COUNT 19.4 10^3/uL (4.0-10.5)
[2018-02-24 14:53] LABS: PLATELET COUNT 19 10^3/uL (150-450)
[2018-02-24 14:56] LABS: ABSOLUTE LYMPHOCYTES# (MANUAL) 2.3 10^3/uL (0.5-4.7); ABSOLUTE NEUTROPHILS# (MANUAL) 16.9 10^3/uL (1.7-8.2); BASOPHILS % (MANUAL) 0 % (0-2); EOSINOPHILS % (MANUAL) 1 % (0-6); LYMPHOCYTES % (MANUAL) 12 % (13-45); MONOCYTES % (MANUAL) 0 % (3-13); SEGMENTED NEUTROPHILS % (MAN) 87 % (42-78); TOTAL CELLS COUNTED 100
[2018-02-24 15:00] LABS: PLATELET COMMENT DECREASED; POIKILOCYTOSIS SLIGHT; POLYCHROMASIA SLIGHT; TARGET CELLS SLIGHT; TOXIC GRANULATION 2+
[2018-02-24] MEDS: ACETAMINOPHEN 325 MG TABLET PO PRN (16:51)
[2018-02-24] MEDS: LEVOFLOXACIN 750 MG/D5W RTU 750 MG/150 ML RTUPB IV SCH (17:59)
[2018-02-24] MEDS: SENNOSIDES/DOCUSATE 8.6-50 MG 1 EACH TABLET PO SCH (21:50)
[2018-02-25] MEDS: LEVALBUTEROL HCL NEB 0.63 MG/3 ML AMPUL NEB SCH ×2 (01:25→08:26)
[2018-02-25] MEDS: VANCOMYCIN HCL 1,000 MG in DEXTROSE 5%-WATER 250 ML IV SCH (03:49)
[2018-02-25] MEDS: MEROPENEM 1 GM in NORMAL SALINE 100 ML IV SCH (03:49)
[2018-02-25 05:54] LABS: HEMATOCRIT 35.4 % (37.9-51.0); HEMOGLOBIN 11.6 g/dL (13.5-17.0); MEAN CORPUSCULAR HEMOGLOBIN 27.8 pg (27.0-33.4); MEAN CORPUSCULAR HGB CONC 32.9 g/dL (32.0-36.0); MEAN CORPUSCULAR VOLUME 84 fl (80-97); RED BLOOD COUNT 4.19 10^6/uL (4.35-5.55); RED CELL DISTRIBUTION WIDTH 15.6 % (11.5-14.0); WHITE BLOOD COUNT 26.5 10^3/uL (4.0-10.5)
[2018-02-25 06:13] LABS: ALANINE AMINOTRANSFERASE 61 U/L (21-72); ALBUMIN 2.6 g/dL (3.5-5.0); ALKALINE PHOSPHATASE 117 U/L (38-126); ANION GAP 6 (5-19); ASPARTATE AMINO TRANSFERASE 51 U/L (17-59); BILIRUBIN,DIRECT 0.8 mg/dL (0.0-0.4); BILIRUBIN,TOTAL 1.5 mg/dL (0.2-1.3); BLOOD UREA NITROGEN 33 mg/dL (7-20); CALCIUM 8.5 mg/dL (8.4-10.2); CARBON DIOXIDE 26 mmol/L (22-30); CHLORIDE 109 mmol/L (98-107); GLUCOSE 128 mg/dL (75-110); PHOSPHORUS 3.7 mg/dL (2.5-4.5); POTASSIUM 4.4 mmol/L (3.6-5.0); SODIUM 141.4 mmol/L (137-145); TOTAL PROTEIN 6.2 g/dL (6.3-8.2)
[2018-02-25 06:25] LABS: PLATELET COUNT 22 10^3/uL (150-450)
[2018-02-25] MEDS ORDERED: TRAMADOL HCL 50 MG TABLET PO PRN (09:03)
[2018-02-25] MEDS ORDERED: ALBUTEROL SULFATE HFA (90 MCG/PUFF) 8 GM MDI (1 MDI/ER DISP) IH PRN (09:03)
[2018-02-25] MEDS ORDERED: ALBUTEROL SULFATE HFA (90 MCG/PUFF) 200 PUFF/8.5 GM MDI IH PRN (09:13)
[2018-02-25] MEDS: FINASTERIDE 5 MG TABLET PO SCH (09:41)
[2018-02-25] MEDS: DOCUSATE SODIUM 100 MG CAPSULE PO SCH ×2 (09:41→17:15)
[2018-02-25] MEDS: LACTOBACILLUS ACIDOPHILUS 250 MG TAB PO SCH ×2 (09:42→17:15)
[2018-02-25 13:29] LABS: HEMATOCRIT 33.3 % (37.9-51.0); HEMOGLOBIN 11.1 g/dL (13.5-17.0); MEAN CORPUSCULAR HGB CONC 33.3 g/dL (32.0-36.0); MEAN CORPUSCULAR VOLUME 84 fl (80-97); RED BLOOD COUNT 3.97 10^6/uL (4.35-5.55); RED CELL DISTRIBUTION WIDTH 15.6 % (11.5-14.0); WHITE BLOOD COUNT 25.6 10^3/uL (4.0-10.5)
[2018-02-25 13:45] LABS: ABSOLUTE LYMPHOCYTES# (MANUAL) 0.8 10^3/uL (0.5-4.7); ABSOLUTE MONOCYTES # (MANUAL) 1.5 10^3/uL (0.1-1.4); ABSOLUTE NEUTROPHILS# (MANUAL) 23.3 10^3/uL (1.7-8.2); BAND NEUTROPHILS % (MANUAL) 4 % (3-5); BASOPHILS % (MANUAL) 0 % (0-2); EOSINOPHILS % (MANUAL) 0 % (0-6); LYMPHOCYTES % (MANUAL) 3 % (13-45); METAMYELOCYTES % (MANUAL) 1 % (0); MONOCYTES % (MANUAL) 6 % (3-13); SEGMENTED NEUTROPHILS % (MAN) 86 % (42-78); TOTAL CELLS COUNTED 100
[2018-02-25 13:48] LABS: ANISOCYTOSIS SLIGHT; POLYCHROMASIA SLIGHT; TOXIC GRANULATION 1+; TOXIC VACUOLATION PRESENT
[2018-02-25 13:49] LABS: HOWELL-JOLLY BODIES PRESENT; PLATELET COMMENT DECREASED
[2018-02-25 13:53] LABS: PLATELET COUNT 19 10^3/uL (150-450)
--- NOTE | 2018-02-25 14:23 | PDOC PROGRESS REPORT ---
Subjective Progress Note for:: 02/25/18 Subjective:: 57-year-old gentleman who presented with sepsis secondary to pneumonia and UTI. Blood cultures positive for beta hemolytic strep group B. Presented with severe thrombocytopenia and hyperbilirubinemia secondary to sepsis. He received 1 pool of platelets on 02/24 TTP was ruled out. Feels and looks better today. Blood cultures from admission grew Group B strep. Day 4 of antibiotics. Will draw 2 more sets of blood cultures. to document resolution Discontinue Benz. Physical therapy. Out of bed. Echocardiogram is pending. Reason For Visit: SEPSIS DUE TO PNEUMONIA AND UTI Physical Exam Vital Signs: Temp Pulse Resp BP Pulse Ox 98.5 F 118 H 21 H 122/72 94 02/25/18 11:33 02/25/18 14:00 02/25/18 11:33 02/25/18 11:33 02/25/18 11:33 Intake & Output 02/24/18 02/25/18 02/26/18 06:59 06:59 06:59 Intake Total 2451 2589 354 Output Total 2175 2550 775 Balance 276 39 -421 Weight 94.6 kg 95.6 kg General appearance: PRESENT: no acute distress, well-nourished Head exam: PRESENT: atraumatic, normocephalic Eye exam: PRESENT: conjunctiva pink, EOMI, PERRLA Ear exam: PRESENT: normal external ear exam Mouth exam: PRESENT: moist Neck exam: ABSENT: tracheal deviation Respiratory exam: PRESENT: clear to auscultation jackson, symmetrical, unlabored. ABSENT: wheezes Cardiovascular exam: PRESENT: RRR GI/Abdominal exam: PRESENT: normal bowel sounds, soft. ABSENT: distended, guarding, tenderness Rectal exam: PRESENT: deferred Neurological exam: PRESENT: alert, awake, oriented to person, oriented to place , oriented to time Psychiatric exam: PRESENT: normal mood Results Laboratory Results: 02/25/18 13:00 02/25/18 05:21 02/24/18 02/25/18 02/25/18 13:50 05:21 05:21 WBC 19.4 H 26.5 H RBC 4.23 L 4.19 L Hgb 11.7 L 11.6 L Hct 35.5 L 35.4 L MCV 84 84 MCH 27.7 27.8 MCHC 33.1 32.9 RDW 16.0 H 15.6 H Plt Count 19 L* 22 L* Seg Neutrophils % Not Reportable Lymphocytes % Not Reportable Monocytes % Not Reportable Eosinophils % Not Reportable Basophils % Not Reportable Absolute Neutrophils Not Reportable Absolute Lymphocytes Not Reportable Absolute Monocytes Not Reportable Absolute Eosinophils Not Reportable Absolute Basophils Not Reportable Sodium 141.4 Potassium 4.4 Chloride 109 H Carbon Dioxide 26 Anion Gap 6 BUN 33 H Creatinine 1.10 Est GFR ( Amer) > 60 Est GFR (Non-Af Amer) > 60 Glucose 128 H Calcium 8.5 Phosphorus 3.7 Magnesium 2.0 Total Bilirubin 1.5 H AST 51 ALT 61 Alkaline Phosphatase 117 Total Protein 6.2 L Albumin 2.6 L 02/25/18 13:00 WBC 25.6 H RBC 3.97 L Hgb 11.1 L Hct 33.3 L MCV 84 MCH 28.0 MCHC 33.3 RDW 15.6 H Plt Count 19 L* Seg Neutrophils % Not Reportable Lymphocytes % Not Reportable Monocytes % Not Reportable Eosinophils % Not Reportable Basophils % Not Reportable Absolute Neutrophils Not Reportable Absolute Lymphocytes Not Reportable Absolute Monocytes Not Reportable Absolute Eosinophils Not Reportable Absolute Basophils Not Reportable Sodium Potassium Chloride Carbon Dioxide Anion Gap BUN Creatinine Est GFR ( Amer) Est GFR (Non-Af Amer) Glucose Calcium Phosphorus Magnesium Total Bilirubin AST ALT Alkaline Phosphatase Total Protein Albumin 02/23/18 03:54 NT-Pro-B Natriuret Pep 5580 H Impressions: Abdomen Ultrasound 02/22/18 00:00 IMPRESSION: No acute findings. Cholelithiasis. Limitation. Head CT 02/22/18 11:27 IMPRESSION: NORMAL BRAIN CT WITHOUT CONTRAST. EVIDENCE OF ACUTE STROKE: NO. Abdomen/Pelvis CT 02/22/18 12:08 IMPRESSION: Right basilar cavitary infiltrates, question aspiration pneumonia. Chest X-Ray 02/23/18 00:00 IMPRESSION: Persistent bibasilar consolidation atelectasis versus pneumonia Assessment & Plan - Diagnosis (1) Acute renal failure Is this a current diagnosis for this admission?: Yes Plan: Secondary to sepsis. Continue to hold Naproxen Avoid nephrotoxic agents. OK to stop IV fluids. Renal function recovered. (2) Right lower lobe pneumonia Qualifiers: Pneumonia type: due to unspecified organism Qualified Code(s): J18.1 - Lobar pneumonia, unspecified organism Is this a current diagnosis for this admission?: Yes Plan: Day 4 of antibiotics, continue Levaquin. Discontinued vancomycin and meropenem. Follow-up on blood and sputum cultures. (3) Sepsis Qualifiers: Sepsis type: sepsis due to unspecified organism Qualified Code(s): A41.9 - Sepsis, unspecified organism Is this a current diagnosis for this admission?: Yes (4) Thrombocytopenia Is this a current diagnosis for this admission?: Yes Plan: Secondary to sepsis. TTP ruled out. Continue to monitor platelets. Hematology consult appreciated. (5) Urinary tract infection Is this a current diagnosis for this admission?: Yes Plan: Follow-up on cultures. Antibiotics as above. (6) Constipation Is this a current diagnosis for this admission?: Yes Plan: Stool softeners and laxatives- resolved. - Time Time Spent with patient: 25-34 minutes
[2018-02-25] MEDS: ACETAMINOPHEN 325 MG TABLET PO PRN (15:09)
[2018-02-25 15:54] LABS: VANCOMYCIN,TROUGH 12.1 ug/mL (5.0-20.0)
[2018-02-25] MEDS: LEVOFLOXACIN 750 MG/D5W RTU 750 MG/150 ML RTUPB IV SCH (17:16)
[2018-02-25] MEDS: SENNOSIDES/DOCUSATE 8.6-50 MG 1 EACH TABLET PO SCH (23:32)
[2018-02-26 03:15] LABS: ALANINE AMINOTRANSFERASE 62 U/L (21-72); ALBUMIN 2.1 g/dL (3.5-5.0); ALKALINE PHOSPHATASE 91 U/L (38-126); ANION GAP 5 (5-19); ASPARTATE AMINO TRANSFERASE 49 U/L (17-59); BILIRUBIN,DIRECT 0.5 mg/dL (0.0-0.4); BILIRUBIN,TOTAL 1.1 mg/dL (0.2-1.3); BLOOD UREA NITROGEN 24 mg/dL (7-20); CALCIUM 8.1 mg/dL (8.4-10.2); CARBON DIOXIDE 23 mmol/L (22-30); CHLORIDE 109 mmol/L (98-107); CREATINE KINASE 31 U/L (55-170); GLUCOSE 137 mg/dL (75-110); POTASSIUM 4.3 mmol/L (3.6-5.0); SODIUM 137.1 mmol/L (137-145); TOTAL PROTEIN 5.3 g/dL (6.3-8.2)
[2018-02-26 03:27] LABS: CREATINE KINASE MB 0.39 ng/mL (<4.55)
[2018-02-26 03:35] LABS: TROPONIN I < 0.012 ng/mL
[2018-02-26 06:55] LABS: HEMATOCRIT 32.9 % (37.9-51.0); HEMOGLOBIN 10.8 g/dL (13.5-17.0); MEAN CORPUSCULAR HEMOGLOBIN 27.7 pg (27.0-33.4); MEAN CORPUSCULAR HGB CONC 32.9 g/dL (32.0-36.0); MEAN CORPUSCULAR VOLUME 84 fl (80-97); RED BLOOD COUNT 3.91 10^6/uL (4.35-5.55); RED CELL DISTRIBUTION WIDTH 15.8 % (11.5-14.0)
[2018-02-26 07:25] LABS: ALANINE AMINOTRANSFERASE 62 U/L (21-72); ALBUMIN 2.3 g/dL (3.5-5.0); ALKALINE PHOSPHATASE 103 U/L (38-126); ANION GAP 6 (5-19); ASPARTATE AMINO TRANSFERASE 53 U/L (17-59); BILIRUBIN,DIRECT 0.7 mg/dL (0.0-0.4); BILIRUBIN,TOTAL 1.3 mg/dL (0.2-1.3); BLOOD UREA NITROGEN 23 mg/dL (7-20); CALCIUM 8.3 mg/dL (8.4-10.2); CARBON DIOXIDE 23 mmol/L (22-30); CHLORIDE 109 mmol/L (98-107); GLUCOSE 149 mg/dL (75-110); POTASSIUM 4.2 mmol/L (3.6-5.0); SODIUM 137.6 mmol/L (137-145); TOTAL PROTEIN 5.7 g/dL (6.3-8.2)
[2018-02-26 07:50] LABS: WHITE BLOOD COUNT 34.3 10^3/uL (4.0-10.5)
[2018-02-26 07:51] LABS: PLATELET COUNT 21 10^3/uL (150-450)
--- NOTE | 2018-02-26 08:19 | PDOC PROGRESS REPORT ---
Subjective Progress Note for:: 02/26/18 Subjective:: Patient states that he slept well last night. Denies any pain. No new complaints. ROS: No abdominal pain. No difficulty breathing. Still remains weak. He is hungry this morning. Reason For Visit: SEPSIS DUE TO PNEUMONIA AND UTI Physical Exam Vital Signs: Temp Pulse Resp BP Pulse Ox 100.0 F 111 H 18 112/62 95 02/26/18 02:18 02/26/18 02:18 02/26/18 02:18 02/26/18 02:18 02/26/18 02:18 Intake & Output 02/25/18 02/26/18 02/27/18 06:59 06:59 06:59 Intake Total 2589 1681 Output Total 2550 1245 Balance 39 436 Weight 95.6 kg 96.3 kg General appearance: PRESENT: no acute distress Head exam: PRESENT: normocephalic Respiratory exam: PRESENT: clear to auscultation jackson, unlabored Cardiovascular exam: PRESENT: RRR. ABSENT: systolic murmur GI/Abdominal exam: PRESENT: soft. ABSENT: tenderness Extremities exam: PRESENT: +1 edema - Bilateral ankles. Psychiatric exam: PRESENT: appropriate affect Skin exam: PRESENT: normal color Results Laboratory Results: 02/26/18 06:40 02/26/18 06:40 02/25/18 02/25/18 02/26/18 13:00 15:22 02:49 WBC 25.6 H RBC 3.97 L Hgb 11.1 L Hct 33.3 L MCV 84 MCH 28.0 MCHC 33.3 RDW 15.6 H Plt Count 19 L* Seg Neutrophils % Not Reportable Lymphocytes % Not Reportable Monocytes % Not Reportable Eosinophils % Not Reportable Basophils % Not Reportable Absolute Neutrophils Not Reportable Absolute Lymphocytes Not Reportable Absolute Monocytes Not Reportable Absolute Eosinophils Not Reportable Absolute Basophils Not Reportable Sodium 137.1 Potassium 4.3 Chloride 109 H Carbon Dioxide 23 Anion Gap 5 BUN 24 H Creatinine 0.91 0.93 Est GFR ( Amer) > 60 > 60 Est GFR (Non-Af Amer) > 60 > 60 Glucose 137 H Calcium 8.1 L Magnesium Total Bilirubin 1.1 AST 49 ALT 62 Alkaline Phosphatase 91 Total Protein 5.3 L Albumin 2.1 L 02/26/18 02/26/18 06:40 06:40 WBC 34.3 H* RBC 3.91 L Hgb 10.8 L Hct 32.9 L MCV 84 MCH 27.7 MCHC 32.9 RDW 15.8 H Plt Count 21 L* Seg Neutrophils % Lymphocytes % Monocytes % Eosinophils % Basophils % Absolute Neutrophils Absolute Lymphocytes Absolute Monocytes Absolute Eosinophils Absolute Basophils Sodium 137.6 Potassium 4.2 Chloride 109 H Carbon Dioxide 23 Anion Gap 6 BUN 23 H Creatinine 0.98 Est GFR ( Amer) > 60 Est GFR (Non-Af Amer) > 60 Glucose 149 H Calcium 8.3 L Magnesium 1.5 L Total Bilirubin 1.3 AST 53 ALT 62 Alkaline Phosphatase 103 Total Protein 5.7 L Albumin 2.3 L 02/23/18 02/26/18 02/26/18 03:54 02:49 02:49 Creatine Kinase 31 L CK-MB (CK-2) 0.39 Troponin I < 0.012 NT-Pro-B Natriuret Pep 5580 H Impressions: Abdomen Ultrasound 02/22/18 00:00 IMPRESSION: No acute findings. Cholelithiasis. Limitation. Head CT 02/22/18 11:27 IMPRESSION: NORMAL BRAIN CT WITHOUT CONTRAST. EVIDENCE OF ACUTE STROKE: NO. Abdomen/Pelvis CT 02/22/18 12:08 IMPRESSION: Right basilar cavitary infiltrates, question aspiration pneumonia. Chest X-Ray 02/23/18 00:00 IMPRESSION: Persistent bibasilar consolidation atelectasis versus pneumonia Assessment & Plan - Diagnosis (1) Sepsis Qualifiers: Sepsis type: sepsis due to unspecified organism Qualified Code(s): A41.9 - Sepsis, unspecified organism Is this a current diagnosis for this admission?: Yes (2) Thrombocytopenia Is this a current diagnosis for this admission?: Yes Plan: Remains stable. No indication for transfusion currently. No evidence of bleeding. (3) Anemia Qualifiers: Anemia type: other cause Other causes of anemia: chronic disease, other Qualified Code(s): D63.8 - Anemia in other chronic diseases classified elsewhere Is this a current diagnosis for this admission?: Yes Plan: Remains stable. No indication for blood transfusion currently. - Plan Summary Plan Summary: WBC still reactive. Agree with current antibiotics. I will continue to follow with you. Please call with any concerns.
[2018-02-26] MEDS: MAGNESIUM SULFATE/D5W 1 GM/100 ML RTUPB IV SCH ×3 (10:34→13:27)
[2018-02-26] MEDS: DOCUSATE SODIUM 100 MG CAPSULE PO SCH ×2 (10:35→17:25)
[2018-02-26] MEDS: LACTOBACILLUS ACIDOPHILUS 250 MG TAB PO SCH ×2 (10:35→17:25)
[2018-02-26] MEDS: FINASTERIDE 5 MG TABLET PO SCH (10:35)
[2018-02-26] MEDS: MAGNESIUM OXIDE 400 MG TABLET PO SCH ×2 (10:35→17:25)
--- NOTE | 2018-02-26 13:27 | XCELERA REPORT ---
[address] [address] Transthoracic Echocardiogram Report Name: GARFIELD KING Age: 57 yrs Gender: Male : 1960 Patient Status: Inpatient Patient Location: [address] [place], [place] [address] Study Date: 02/26/2018 11:28 AM Height: 73 in Weight: 201 lb BSA: 2.2 m2 Procedure: A complete two-dimensional transthoracic echocardiogram was performed (2D, M-mode, spectral and color flow Doppler). The study was technically adequate with some images being suboptimal in quality. Reason For Study: CHF, LVEF Ordering Physician: SYD POPE Performed By: Odalis Medrano Interpretation Summary There is a large vegetation or mass on the tricuspid valve. vegatation size [id number] The left ventricular ejection fraction is normal. Doppler measurements suggest impaired left ventricular relaxation, which is associated with grade I/IV or mild diastolic dysfunction There is borderline concentric left ventricular hypertrophy. The left ventricle is grossly normal size. Wall motion cannot be accurately commented on, but no definite regional wall motion abnormalities noted. The right ventricle is mildly dilated. The right ventricular systolic function is normal. The right atrium is moderately dilated. The left atrial size is normal. There is no mitral valve stenosis. There is a mild amount of mitral regurgitation There is no aortic valve stenosis There is a trace to mild amount of aortic regurgitation There is a moderate to severe amount of tricuspid regurgitation There is moderate pulmonary hypertension by echo Right ventricular systolic pressure is estimated to be elevated at 50- 60mmHg. The aortic root is not well visualized but is probably normal size. The inferior vena cava appeared normal and decreased > 50% with respiration (RAP 5-10 mmHg) Minimal pericardial effusion. Recommend ROBBY and. CT surgery Consult MMode/2D Measurements & Calculations RVDd: 2.8 cm LVIDd: 4.2 cm FS: 32.9 % Ao root diam: 3.4 cm IVSd: 0.97 cm LVIDs: 2.8 cm EDV(Teich): 78.7 ml LVPWd: 0.95 cm ESV(Teich): 30.0 ml Ao root area: 9.1 cm2 EF(Teich): 61.8 % LA dimension: 3.1 cm Doppler Measurements & Calculations MV E max natasha: MV P1/2t max natasha: Ao V2 max: LV V1 max P.1 cm/sec 70.6 cm/sec 247.0 cm/sec 4.8 mmHg MV A max natasha: MV P1/2t: 52.2 msec Ao max PG: LV V1 max: 71.1 cm/sec 24.4 mmHg 110.1 cm/sec MV E/A: 0.99 MVA(P1/2t): 4.2 cm2 MV dec slope: 395.9 cm/sec2 MV dec time: 0.21 sec PA V2 max: PI end-d natasha: TR max natasha: 74.0 cm/sec 130.3 cm/sec 336.6 cm/sec PA max PG: TR max P.2 mmHg 45.3 mmHg Left Ventricle The left ventricle is grossly normal size. There is borderline concentric left ventricular hypertrophy. The left ventricular ejection fraction is normal. Doppler measurements suggest impaired left ventricular relaxation, which is associated with grade I/IV or mild diastolic dysfunction. Wall motion cannot be accurately commented on, but no definite regional wall motion abnormalities noted. Right Ventricle The right ventricle is mildly dilated. There is normal right ventricular wall thickness. The right ventricular systolic function is normal. Atria The right atrium is moderately dilated. The left atrial size is normal. Interarterial septum not well visualized and not well dopplered. Cannot comment on ASD/PFO presence. Mitral Valve The mitral valve is grossly normal. There is no mitral valve stenosis. There is a mild amount of mitral regurgitation. Aortic Valve Possible Bicuspid. There is no aortic valve stenosis. There is a trace to mild amount of aortic regurgitation. Tricuspid Valve opens well. There is a large vegetation or mass on the tricuspid valve. vegatation size [id number]. There is no tricuspid stenosis. There is a moderate to severe amount of tricuspid regurgitation. There is moderate pulmonary hypertension by echo. Right ventricular systolic pressure is estimated to be elevated at 50-60mmHg. Pulmonic Valve The pulmonic valve is not well visualized. Great Vessels The aortic root is not well visualized but is probably normal size. The inferior vena cava appeared normal and decreased > 50% with respiration (RAP 5-10 mmHg). Effusions Minimal pericardial effusion. Incidental Findings Consider ROBBY if clinically indicated. : SYD POPE > Harris Mobley
[2018-02-26 13:56] LABS: HEMATOCRIT 30.1 % (37.9-51.0); HEMOGLOBIN 9.9 g/dL (13.5-17.0); MEAN CORPUSCULAR HEMOGLOBIN 27.8 pg (27.0-33.4); MEAN CORPUSCULAR HGB CONC 32.9 g/dL (32.0-36.0); MEAN CORPUSCULAR VOLUME 85 fl (80-97); RED BLOOD COUNT 3.57 10^6/uL (4.35-5.55); RED CELL DISTRIBUTION WIDTH 16.1 % (11.5-14.0)
[2018-02-26] MEDS ORDERED: CEFTRIAXONE 2 GM/D5W RTU 2 GM/50 ML RTUPB IV SCH (14:00)
[2018-02-26 14:20] LABS: ABSOLUTE LYMPHOCYTES# (MANUAL) 1.3 10^3/uL (0.5-4.7); ABSOLUTE NEUTROPHILS# (MANUAL) 29.8 10^3/uL (1.7-8.2); BAND NEUTROPHILS % (MANUAL) 2 % (3-5); BASOPHILS % (MANUAL) 0 % (0-2); EOSINOPHILS % (MANUAL) 0 % (0-6); LYMPHOCYTES % (MANUAL) 4 % (13-45); METAMYELOCYTES % (MANUAL) 1 % (0); MONOCYTES % (MANUAL) 3 % (3-13); PLATELET COMMENT DECREASED; SEGMENTED NEUTROPHILS % (MAN) 90 % (42-78); TOTAL CELLS COUNTED 100; TOXIC GRANULATION 1+; TOXIC VACUOLATION PRESENT
[2018-02-26 14:21] LABS: ANISOCYTOSIS 1+; HYPOCHROMASIA SLIGHT; POLYCHROMASIA SLIGHT
[2018-02-26 14:26] LABS: PLATELET COUNT 23 10^3/uL (150-450)
--- NOTE | 2018-02-26 14:40 | PDOC PROGRESS REPORT ---
Subjective Progress Note for:: 02/26/18 Subjective:: 57-year-old gentleman who presented with severe thrombocytopenia and hyperbilirubinemia secondary to sepsis. TTP was ruled out. He received 1 pool of platelets on 02/24. Platelet count has been improving. Blood cultures from admission grew Group B strep. Day 5 of antibiotics. Repeat 2 sets of blood cultures are pending to document resolution Discontinue Benz. Physical therapy. Out of bed. Echocardiogram showed 2x2 cm vegetation on the tricuspid valve with moderate to severe TR. I spoke with Dr. errol Arceo ([facility])- ok to continue Rocephin. Will check to see if a continuous penicillin infusion would be possible. Reason For Visit: SEPSIS DUE TO PNEUMONIA AND UTI Physical Exam Vital Signs: Temp Pulse Resp BP Pulse Ox 99.7 F 117 H 16 102/50 L 96 02/26/18 11:54 02/26/18 11:54 02/26/18 11:54 02/26/18 11:54 02/26/18 11:54 Intake & Output 02/25/18 02/26/18 02/27/18 06:59 06:59 06:59 Intake Total 2589 1681 200 Output Total 2550 1245 125 Balance 39 436 75 Weight 95.6 kg 96.3 kg General appearance: PRESENT: no acute distress Head exam: PRESENT: atraumatic, normocephalic Eye exam: PRESENT: EOMI Ear exam: PRESENT: normal external ear exam Teeth exam: PRESENT: edentulous Respiratory exam: PRESENT: symmetrical, unlabored. ABSENT: rhonchi Cardiovascular exam: PRESENT: RRR GI/Abdominal exam: PRESENT: normal bowel sounds, soft. ABSENT: tenderness Rectal exam: PRESENT: deferred Extremities exam: PRESENT: pedal edema Skin exam: ABSENT: rash Results Laboratory Results: 02/26/18 13:37 02/26/18 06:40 02/25/18 02/26/18 02/26/18 15:22 02:49 06:40 WBC 34.3 H* RBC 3.91 L Hgb 10.8 L Hct 32.9 L MCV 84 MCH 27.7 MCHC 32.9 RDW 15.8 H Plt Count 21 L* Seg Neutrophils % Lymphocytes % Monocytes % Eosinophils % Basophils % Absolute Neutrophils Absolute Lymphocytes Absolute Monocytes Absolute Eosinophils Absolute Basophils Sodium 137.1 Potassium 4.3 Chloride 109 H Carbon Dioxide 23 Anion Gap 5 BUN 24 H Creatinine 0.91 0.93 Est GFR ( Amer) > 60 > 60 Est GFR (Non-Af Amer) > 60 > 60 Glucose 137 H Calcium 8.1 L Magnesium Total Bilirubin 1.1 AST 49 ALT 62 Alkaline Phosphatase 91 Total Protein 5.3 L Albumin 2.1 L 02/26/18 02/26/18 06:40 13:37 WBC 32.0 H* RBC 3.57 L Hgb 9.9 L Hct 30.1 L MCV 85 MCH 27.8 MCHC 32.9 RDW 16.1 H Plt Count 23 L* Seg Neutrophils % Not Reportable Lymphocytes % Not Reportable Monocytes % Not Reportable Eosinophils % Not Reportable Basophils % Not Reportable Absolute Neutrophils Not Reportable Absolute Lymphocytes Not Reportable Absolute Monocytes Not Reportable Absolute Eosinophils Not Reportable Absolute Basophils Not Reportable Sodium 137.6 Potassium 4.2 Chloride 109 H Carbon Dioxide 23 Anion Gap 6 BUN 23 H Creatinine 0.98 Est GFR ( Amer) > 60 Est GFR (Non-Af Amer) > 60 Glucose 149 H Calcium 8.3 L Magnesium 1.5 L Total Bilirubin 1.3 AST 53 ALT 62 Alkaline Phosphatase 103 Total Protein 5.7 L Albumin 2.3 L 02/23/18 02/26/18 02/26/18 03:54 02:49 02:49 Creatine Kinase 31 L CK-MB (CK-2) 0.39 Troponin I < 0.012 NT-Pro-B Natriuret Pep 5580 H Impressions: Abdomen Ultrasound 02/22/18 00:00 IMPRESSION: No acute findings. Cholelithiasis. Limitation. Head CT 02/22/18 11:27 IMPRESSION: NORMAL BRAIN CT WITHOUT CONTRAST. EVIDENCE OF ACUTE STROKE: NO. Abdomen/Pelvis CT 02/22/18 12:08 IMPRESSION: Right basilar cavitary infiltrates, question aspiration pneumonia. Chest X-Ray 02/23/18 00:00 IMPRESSION: Persistent bibasilar consolidation atelectasis versus pneumonia Assessment & Plan - Diagnosis (1) Acute renal failure Is this a current diagnosis for this admission?: Yes Plan: Resolved. (2) Right lower lobe pneumonia Qualifiers: Pneumonia type: due to unspecified organism Qualified Code(s): J18.1 - Lobar pneumonia, unspecified organism Is this a current diagnosis for this admission?: Yes Plan: Day 5 of antibiotics- Rocephin. Follow-up on blood and sputum cultures. (3) Sepsis Qualifiers: Sepsis type: sepsis due to unspecified organism Qualified Code(s): A41.9 - Sepsis, unspecified organism Is this a current diagnosis for this admission?: Yes Plan: Due to Group B strep bacteremia and endocarditis. Follow-up on cultures. Antibiotics as above. (4) Thrombocytopenia Is this a current diagnosis for this admission?: Yes Plan: Secondary to sepsis. TTP ruled out. Continue to monitor platelets. Hematology consult appreciated. (5) Constipation Is this a current diagnosis for this admission?: Yes Plan: Stool softeners and laxatives- resolved. (6) Tricuspid valve regurgitation, infectious Is this a current diagnosis for this admission?: Yes Plan: Antibiotics. Will consult CT surgery at [facility]. - Time Time Spent with patient: 35 or more minutes
--- NOTE | 2018-02-26 14:58 | Progress Note ---
Provider Note Provider Note: ID Consult Note Spoke with Dr Shah and reviewed patient's chart. Mr Castro is a 57 yo man who was admitted with AMS. He was found to have hypothermia, severe thrombocytopenia and leukocytosis. Admission blood cultures grew Group B Strep in 1 set. He is edentulous. He had peripheral edema. His abdominal exam was documented as being benign, as was his rectal exam, including a lack of prostatic tenderness or fluctuance. CT abdomen and pelvis without contrast was unrevealing apart from the presence of bilateral peripheral nodular densities in the visualized lung bases. His TTE revealed a 2x 3 cm vegetation on the tricuspid valve with tricuspid valve insufficiency. 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 Tricuspid valve involvement is more common in the setting of IVDU, and the patient should be asked about a possible history of this. Group B Strep is an organism that is typically found in the GI tract. May consider a colonoscopy if he has not had one in the past few years, as part of routine screening based on his age. Follow up blood cultures from 02/25/18. Recommend narrowing treatment from Rocephin 2 g q24h IV to Penicillin G 24 million units as a continuous IV infusion. Yang Arceo MD, pager [phone]
--- NOTE | 2018-02-26 19:18 | EKG REPORT ---
SEVERITY:- BORDERLINE ECG - SINUS TACHYCARDIA VENTRICULAR PREMATURE COMPLEX BORDERLINE T ABNORMALITIES, INFERIOR LEADS : Confirmed by: Harris Mobley 26-Feb-2018 19:17:38
[2018-02-26] MEDS ORDERED: WATER IV SCH (22:00)
[2018-02-26] MEDS ORDERED: DEXTROSE 5% IV SCH (22:00)
[2018-02-26] MEDS ORDERED: PENICILLIN POTASSIUM IV SCH (22:00)
[2018-02-26] MEDS: SENNOSIDES/DOCUSATE 8.6-50 MG 1 EACH TABLET PO SCH (22:38)
[2018-02-26] MEDS: ACETAMINOPHEN 325 MG TABLET PO PRN (22:38)
[2018-02-27 05:36] LABS: HEMATOCRIT 29.9 % (37.9-51.0); HEMOGLOBIN 9.9 g/dL (13.5-17.0); MEAN CORPUSCULAR HEMOGLOBIN 27.8 pg (27.0-33.4); MEAN CORPUSCULAR HGB CONC 33.1 g/dL (32.0-36.0); MEAN CORPUSCULAR VOLUME 84 fl (80-97); RED BLOOD COUNT 3.56 10^6/uL (4.35-5.55); RED CELL DISTRIBUTION WIDTH 15.7 % (11.5-14.0)
[2018-02-27 06:03] LABS: ALANINE AMINOTRANSFERASE 63 U/L (21-72); ALKALINE PHOSPHATASE 94 U/L (38-126); ASPARTATE AMINO TRANSFERASE 56 U/L (17-59); BILIRUBIN,DIRECT 0.5 mg/dL (0.0-0.4); BILIRUBIN,TOTAL 0.9 mg/dL (0.2-1.3); BLOOD UREA NITROGEN 20 mg/dL (7-20); CALCIUM 8.2 mg/dL (8.4-10.2); CARBON DIOXIDE 26 mmol/L (22-30); CHLORIDE 107 mmol/L (98-107); GLUCOSE 133 mg/dL (75-110); POTASSIUM 3.9 mmol/L (3.6-5.0); TOTAL PROTEIN 5.2 g/dL (6.3-8.2)
[2018-02-27 06:04] LABS: PLATELET COUNT 23 10^3/uL (150-450)
[2018-02-27 06:08] LABS: SODIUM 136.7 mmol/L (137-145)
[2018-02-27 06:13] LABS: ANION GAP 4 (5-19)
[2018-02-27 08:10] VITALS: BP 123/74
--- NOTE | 2018-02-27 10:13 | PDOC TRANSFER SUMMARY ---
General Admission Date/PCP: 02/22/18 13:58 DORIAN BAUMANN, [place] - Transfer Diagnosis (1) Tricuspid valve regurgitation, infectious Is this a current diagnosis for this admission?: Yes (2) Acute renal failure Is this a current diagnosis for this admission?: Yes (3) Right lower lobe pneumonia Is this a current diagnosis for this admission?: Yes (4) Sepsis Is this a current diagnosis for this admission?: Yes (5) Thrombocytopenia Is this a current diagnosis for this admission?: Yes - Transfer Medications Home Medications: Albuterol Sulfate [Proair HFA] 2 puff IH Q6HP PRN 02/22/18 Finasteride [Proscar 5 mg Tablet] 5 mg PO DAILY 02/22/18 Tramadol HCl [Ultram 50 mg Tablet] 50 mg PO Q6HP PRN 02/22/18 Transfer Medications: Current Medications Acetaminophen (Tylenol 325 Mg Tablet) 650 mg PO Q4HP PRN PRN Reason: FEVER >101 Stop: 03/24/18 13:48 Last Admin: 02/26/18 22:38 Dose: 650 mg Albuterol (Proair Hfa Inhalation Aerosol 8.5 Gm Mdi) 2 puff IH Q6HP PRN PRN Reason: WHEEZING/SHORTNESS OF BREATH Stop: 03/27/18 09:12 Bisacodyl (Dulcolax 5 Mg Tablet) 10 mg PO DAILYP PRN PRN Reason: FOR CONSTIPATION Stop: 03/25/18 08:12 Last Admin: 02/23/18 17:14 Dose: 10 mg Docusate Sodium (Colace 100 Mg Capsule) 100 mg PO BID JARON Stop: 03/24/18 17:59 Last Admin: 02/26/18 17:25 Dose: 100 mg Finasteride (Proscar 5 Mg Tablet) 5 mg PO DAILY JARON Stop: 03/27/18 09:59 Last Admin: 02/26/18 10:35 Dose: 5 mg Penicillin G Potassium 24,000, (000 unit/ Dextrose) 500 mls @ 20.833 mls/hr IV QHS JARON Stop: 03/05/18 21:59 Last Admin: 02/26/18 22:38 Dose: 24,000,000 unit Lactobacillus Acidophilus (Bacid 250 Mg Tablet) 500 mg PO BID JARON Stop: 03/26/18 09:59 Last Admin: 02/26/18 17:25 Dose: 500 mg Levalbuterol HCl (Xopenex Neb 1.25 Mg/3 Ml Ampul) 1.25 mg NEB RTQ4HP PRN PRN Reason: SHORTNESS OF BREATH Stop: 03/24/18 13:48 Magnesium Oxide (Mag-Ox 400 Mg Tablet) 400 mg PO BID JARON Stop: 03/28/18 09:59 Last Admin: 02/26/18 17:25 Dose: 400 mg Ondansetron HCl (Zofran Inj/Pf 4 Mg/2 Ml Sdv) 4 mg IV Q8HP PRN PRN Reason: FOR NAUSEA/VOMITING Stop: 03/24/18 13:48 Senna/Docusate Sodium (Senna Plus Tablet) 2 each PO QHS JARON Stop: 03/25/18 21:59 Last Admin: 02/26/18 22:38 Dose: 2 each Sodium Chloride (Saline Flush 2.5 Ml Monoject Prefil Syrin) 2.5 ml IV Q8 JARON Stop: 03/24/18 13:59 Last Admin: 02/27/18 05:10 Dose: Not Given Tramadol HCl (Ultram 50 Mg Tablet) 50 mg PO Q6HP PRN PRN Reason: FOR PAIN Stop: 03/04/18 09:02 - Allergies Allergies/Adverse Reactions: No Known Allergies Allergy (Verified 02/22/18 09:32) - Diet/Activity Discharge Diet: Regular Hospital Course Hospital Course: He presented to the emergency room after being referred from his primary care's office for low blood pressures. The patient's family reported that he had been short of breath for the 2-3 days with bilateral lower extremity and abdominal swelling. He also had generalized weakness and difficulty with ambulation secondary to weakness. He quit smoking 2 months ago. Upon admission he was quite lethargic and was initially given some Narcan. He was found to have sepsis, acute renal failure, a urinary tract infection and a right lower lobe infiltrate. He was given aggressive IV fluid resuscitation and antibiotics. of note, on admission, his WBC was 26K and his platelets were 11k. Hematology was consulted because of the concern for TTP. Per Heme, His platelets were markedly decreased in number but normal in morphology. Estimate is 10-20. All of this is consistent with consumption from Sepsis. He receive a 1 pool of platelets. Blood culture grew Group B strept. Urine culture grew no organsims. Echocardiogram was obtained. It showed TV vegetation. Per ID recommendations, antibiotics were changed to PCN infusion. He is being transferred to [facility] for higher level of care and specialty support. Physical Exam Vital Signs: Temp Pulse Resp BP Pulse Ox 98.7 F 112 H 16 123/74 96 02/27/18 07:59 02/27/18 07:59 02/27/18 07:59 02/27/18 07:59 02/27/18 07:59 Intake & Output 02/26/18 02/27/18 02/28/18 06:59 06:59 06:59 Intake Total 1681 1400 Output Total 1245 125 Balance 436 1275 Weight 96.3 kg 96.9 kg General appearance: PRESENT: no acute distress, well-developed, well-nourished Head exam: PRESENT: atraumatic, normocephalic Eye exam: PRESENT: EOMI, PERRLA Respiratory exam: PRESENT: clear to auscultation jackson. ABSENT: rales, rhonchi, wheezes Cardiovascular exam: PRESENT: RRR. ABSENT: diastolic murmur, rubs, systolic murmur GI/Abdominal exam: PRESENT: normal bowel sounds, soft. ABSENT: distended, guarding, mass, organolmegaly, rebound, tenderness Neurological exam: PRESENT: alert, awake, oriented to person, oriented to place , oriented to time, oriented to situation, CN II-XII grossly intact. ABSENT: motor sensory deficit Psychiatric exam: PRESENT: appropriate affect, normal mood. ABSENT: homicidal ideation, suicidal ideation Results Laboratory Results: 02/27/18 04:47 02/27/18 04:47 02/26/18 02/27/18 02/27/18 13:37 04:47 04:47 WBC 32.0 H* 28.0 H RBC 3.57 L 3.56 L Hgb 9.9 L 9.9 L Hct 30.1 L 29.9 L MCV 85 84 MCH 27.8 27.8 MCHC 32.9 33.1 RDW 16.1 H 15.7 H Plt Count 23 L* 23 L* Seg Neutrophils % Not Reportable Lymphocytes % Not Reportable Monocytes % Not Reportable Eosinophils % Not Reportable Basophils % Not Reportable Absolute Neutrophils Not Reportable Absolute Lymphocytes Not Reportable Absolute Monocytes Not Reportable Absolute Eosinophils Not Reportable Absolute Basophils Not Reportable Sodium 136.7 L Potassium 3.9 Chloride 107 Carbon Dioxide 26 Anion Gap 4 L BUN 20 Creatinine 0.85 Est GFR ( Amer) > 60 Est GFR (Non-Af Amer) > 60 Glucose 133 H Calcium 8.2 L Total Bilirubin 0.9 AST 56 ALT 63 Alkaline Phosphatase 94 Total Protein 5.2 L Albumin 2.0 L 02/23/18 02/26/18 02/26/18 03:54 02:49 02:49 Creatine Kinase 31 L CK-MB (CK-2) 0.39 Troponin I < 0.012 NT-Pro-B Natriuret Pep 5580 H Impressions: Abdomen Ultrasound 02/22/18 00:00 IMPRESSION: No acute findings. Cholelithiasis. Limitation. Head CT 02/22/18 11:27 IMPRESSION: NORMAL BRAIN CT WITHOUT CONTRAST. EVIDENCE OF ACUTE STROKE: NO. Abdomen/Pelvis CT 02/22/18 12:08 IMPRESSION: Right basilar cavitary infiltrates, question aspiration pneumonia. Chest X-Ray 02/23/18 00:00 IMPRESSION: Persistent bibasilar consolidation atelectasis versus pneumonia Plan Discharge Plan: Transfer to [facility] Time Spent: Greater than 30 Minutes - 40 minutes
== END 2018-02-27 10:26 | disposition short-term general hospital (02) | DRG 288 ==
LOC: ER 09:31 → EH 13:58 → 3N 15:45 → ICU 18:25 → 3W 02-23 15:37
PROVIDERS: ADMIT Internal Medicine; ATTEND Internal Medicine
PROC: 30233R1 Transfusion of Nonautologous Platelets into Peripheral Vein, Percutaneous Approach (ICD-10-PCS; principal; 2018-02-23)
DX: I33.0 Acute and subacute infective endocarditis (principal); A40.1 Sepsis due to streptococcus, group B; J18.9 Pneumonia, unspecified organism; N39.0 Urinary tract infection, site not specified; N17.9 Acute kidney failure, unspecified; E78.5 Hyperlipidemia, unspecified; I07.1 Rheumatic tricuspid insufficiency; B95.1 Streptococcus, group B, as the cause of diseases classified elsewhere; D69.59 Other secondary thrombocytopenia; K59.00 Constipation, unspecified; D64.9 Anemia, unspecified; Z79.891 Long term (current) use of opiate analgesic; Z82.49 Family history of ischemic heart disease and other diseases of the circulatory system
CPT/HCPCS: 36415; 36430; 51702; 70450; 71045; 74176; 76700; 80053; 80061; 80202; 80307; 81001; 82140; 82550; 82553; 82565; 82803; 83036; 83605; 83735; 83880; 84100; 84443; 84484; 85025; 85027; 85384; 85610; 85730; 86850; 86900; 86901; 87040; 87077; 87086; 87186; 93005; 93010; 93306; 94640; 96361; 96365; 96367; 99291; J0696; J1956; J2185; J2310; J2540; J2930; J3370; J3475; J3490; J7030; J7060; J7614; P9035; S0164

== ENCOUNTER 2018-03-14 12:58 | Emergency (ER) | payer MEDICAID, MEDICARE ==
--- NOTE | 2018-03-14 13:23 | ER Document Report ---
ED Medical Screen (RME) - General Chief Complaint: Other Stated Complaint: CLOGGED PICK LINE Time Seen by Provider: 03/14/18 13:20 Notes: Patient discharged from [facility] approximately 1 week ago after open heart surgery for valve repair. Patient presents with a clogged PICC line. According to patient is also been confused. Patient is noticed to be tachycardic in triage. TRAVEL OUTSIDE OF THE [place] IN LAST 30 DAYS: No - Related Data Allergies/Adverse Reactions: No Known Allergies Allergy (Verified 03/14/18 12:59) Past Medical History - Social History Chew tobacco use (# tins/day): No Frequency of alcohol use: None Drug Abuse: None - Past Medical History Cardiac Medical History: Reports: Hx Hypercholesterolemia Pulmonary Medical History: Reports: Hx Asthma - ? Not sure if asthmatic, but uses a pro-air inhaler., Hx Pneumonia Endocrine Medical History: Denies: Hx Diabetes Mellitus Type 1, Hx Diabetes Mellitus Type 2 Renal/ Medical History: Denies: Hx Peritoneal Dialysis Past Surgical History: Reports: Hx Cardiac Surgery - 02/2018 - Immunizations History of Influenza Vaccine for 08/2017 - 01/2018 Season: Unknown Physical Exam - Vital signs Vitals: Temp Pulse Resp BP Pulse Ox 97.6 F 125 H 16 122/79 94 03/14/18 13:03 03/14/18 13:03 03/14/18 13:03 03/14/18 13:03 03/14/18 13:03 Course - Vital Signs Vital signs: Temp Pulse Resp BP Pulse Ox 97.6 F 125 H 16 122/79 94 03/14/18 13:03 03/14/18 13:03 03/14/18 13:03 03/14/18 13:03 03/14/18 13:03
[2018-03-14 14:32] LABS: ABSOLUTE BASOPHILS # (AUTO) 0.1 10^3/uL (0.0-0.2); ABSOLUTE EOSINOPHILS # (AUTO) 0.4 10^3/uL (0.0-0.6); ABSOLUTE LYMPHOCYTES (AUTO) 1.6 10^3/uL (0.5-4.7); ABSOLUTE MONOCYTES (AUTO) 1.3 10^3/uL (0.1-1.4); ABSOLUTE NEUT (AUTO) 9.5 10^3/uL (1.7-8.2); BASOPHILS % (AUTO) 0.7 % (0-2); HEMATOCRIT 26.2 % (37.9-51.0); HEMOGLOBIN 8.7 g/dL (13.5-17.0); LYMPHOCYTES % (AUTO) 12.2 % (13-45); MEAN CORPUSCULAR HEMOGLOBIN 28.3 pg (27.0-33.4); MEAN CORPUSCULAR HGB CONC 33.4 g/dL (32.0-36.0); MEAN CORPUSCULAR VOLUME 85 fl (80-97); MONOCYTES % (AUTO) 9.8 % (3-13); PLATELET COUNT 361 10^3/uL (150-450); RED BLOOD COUNT 3.09 10^6/uL (4.35-5.55); RED CELL DISTRIBUTION WIDTH 15.8 % (11.5-14.0); SEGMENTED NEUTROPHILS % (AUTO) 74.3 % (42-78); TOTAL CELLS COUNTED % (AUTO) 100 %; WHITE BLOOD COUNT 12.8 10^3/uL (4.0-10.5)
[2018-03-14] MEDS ORDERED: NORMAL SALINE 1000 ML 1,000 ML IV ONE (14:36)
--- NOTE | 2018-03-14 14:36 | ER Document Report ---
ED General - General Chief Complaint: Other Stated Complaint: CLOGGED PICK LINE Time Seen by Provider: 03/14/18 13:20 Notes: The patient is a 57-year-old male, past medical history tricuspid valve replacement 1 week ago at [facility], persistent tachycardia, pneumonia, presents with difficulty flushing his PICC line at home. He is receiving IV antibiotics daily for the pneumonia. He did not take his morning amiodarone or metoprolol this morning. Patient denies pain around the PICC line, chest pain, shortness of breath, fevers, nausea, vomiting, back pain, headache, rash, urinary symptoms or abdominal pain. TRAVEL OUTSIDE OF THE [place] IN LAST 30 DAYS: No - Related Data Allergies/Adverse Reactions: No Known Allergies Allergy (Verified 03/14/18 12:59) Past Medical History - General Information source: Patient - Social History Smoking Status: Never Smoker Chew tobacco use (# tins/day): No Frequency of alcohol use: None Drug Abuse: None Family History: Reviewed & Not Pertinent, COPD, Hypertension Patient has suicidal ideation: No Patient has homicidal ideation: No - Past Medical History Cardiac Medical History: Reports: Hx Hypercholesterolemia Pulmonary Medical History: Reports: Hx Asthma - ? Not sure if asthmatic, but uses a pro-air inhaler., Hx Pneumonia Endocrine Medical History: Denies: Hx Diabetes Mellitus Type 1, Hx Diabetes Mellitus Type 2 Renal/ Medical History: Denies: Hx Peritoneal Dialysis Past Surgical History: Reports: Hx Cardiac Surgery - 02/2018 Review of Systems - Review of Systems Notes: REVIEW OF SYSTEMS: CONSTITUTIONAL: -fevers, -chills EENT: -eye pain, -difficulty swallowing, -nasal congestion CARDIOVASCULAR: -chest pain, -syncope. RESPIRATORY: -cough, -SOB GASTROINTESTINAL: -abdominal pain, -nausea, -vomiting, -diarrhea GENITOURINARY: -dysuria, -hematuria MUSCULOSKELETAL: -back pain, -neck pain SKIN: -rash or skin lesions. HEMATOLOGIC: -easy bruising or bleeding. LYMPHATIC: -swollen, enlarged glands. NEUROLOGICAL: -altered mental status or loss of consciousness, -headache, - neurologic symptoms PSYCHIATRIC: -anxiety, -depression. ALL OTHER SYSTEMS REVIEWED AND NEGATIVE. Physical Exam - Vital signs Vitals: Temp Pulse Resp BP Pulse Ox 97.6 F 125 H 16 122/79 94 03/14/18 13:03 03/14/18 13:03 03/14/18 13:03 03/14/18 13:03 03/14/18 13:03 - Notes Notes: PHYSICAL EXAMINATION: GENERAL: Well-appearing, well-nourished and in no acute distress. HEAD: Atraumatic, normocephalic. EYES: Pupils equal round and reactive to light, extraocular movements intact, sclera anicteric, conjunctiva are normal. ENT: nares patent, oropharynx clear without exudates. Moist mucous membranes. NECK: Normal range of motion, supple without lymphadenopathy LUNGS: Breath sounds clear to auscultation bilaterally and equal. No wheezes rales or rhonchi. HEART: Regular rhythm, tachycardia. Well-healed midline surgical wound. ABDOMEN: Soft, nontender, normoactive bowel sounds. No guarding, no rebound. No masses appreciated. EXTREMITIES: LUE with PICC line that will slowly flush. No surrounding tenderness or erythema. Normal range of motion, no pitting or edema. No cyanosis. NEUROLOGICAL: Cranial nerves grossly intact. Normal speech, normal gait. Normal sensory and motor exams. PSYCH: Normal mood, normal affect. SKIN: Warm, Dry, normal turgor, no rashes or lesions noted. Course - Re-evaluation Re-evalutation: Patient appears well. He has no complaints at this time, other than a PICC line that is slow to flush. After heparin through the PICC line, it was easier to flush, but there is still resistance. TPA was infused through the PICC line with total resolution of the clogged PICC line. Patient did not take his amiodarone and metoprolol, which may be leading to his tachycardia. Blood work is remarkable for a leukocytosis, which is lower than his prior values, and a slight anemia. He does not require blood transfusion at this time. No signs of infection to suggest sepsis. Will discharge patient home with follow-up at his cardiac surgeon as scheduled this week. - Vital Signs Vital signs: Temp Pulse Resp BP Pulse Ox 97.6 F 125 H 23 H 122/79 94 03/14/18 13:03 03/14/18 13:03 03/14/18 14:06 03/14/18 13:03 03/14/18 13:03 - Laboratory Result Diagrams: 03/14/18 14:14 03/14/18 14:14 Laboratory results interpreted by me: 03/14/18 03/14/18 03/14/18 14:14 14:14 14:14 WBC 12.8 H RBC 3.09 L Hgb 8.7 L Hct 26.2 L RDW 15.8 H Lymphocytes % 12.2 L Absolute Neutrophils 9.5 H Albumin 2.9 L Urine Urobilinogen 4.0 H - Diagnostic Test Radiology reviewed: Image reviewed, Reports reviewed Radiology results interpreted by me: CXR: Bibasilar opacification. Left lower lobe consolidation cannot be excluded. The nodularity appears to represent a change. There is a nodule in the medial right base that can perhaps be seen on the earlier study. An ovoid opacity in the right lower lung field may represent fluid in the fissure. Discharge - Discharge Clinical Impression: Occlusion of peripherally inserted central catheter (PICC) line Qualifiers: Encounter type: initial encounter Qualified Code(s): T82.898A - Other specified complication of vascular prosthetic devices, implants and grafts, initial encounter Condition: Stable Disposition: HOME, SELF-CARE Additional Instructions: Keep your PICC line clean and continue the medications as prescribed by your surgeon. Follow-up with the surgeon. Return to the ER if you notice any fevers , chest pain or any other concerns. Referrals: CARMEN ROMAN, [Primary Care Provider] - Follow up as needed
[2018-03-14 14:38] LABS: APPEARANCE,URINE CLEAR; BILIRUBIN,URINE NEGATIVE (NEGATIVE); COLOR,URINE YELLOW; GLUCOSE, URINE NEGATIVE (NEGATIVE); KETONES,URINE NEGATIVE (NEGATIVE); LEUKOCYTE ESTERASE,URINE NEGATIVE (NEGATIVE); NITRITE,URINE NEGATIVE (NEGATIVE); PROTEIN,URINE NEGATIVE (NEGATIVE); URINE SPECIFIC GRAVITY 1.012
[2018-03-14 14:42] LABS: ALANINE AMINOTRANSFERASE 31 U/L (21-72); ALBUMIN 2.9 g/dL (3.5-5.0); ALKALINE PHOSPHATASE 74 U/L (38-126); ANION GAP 5 (5-19); ASPARTATE AMINO TRANSFERASE 32 U/L (17-59); BILIRUBIN,DIRECT 0.4 mg/dL (0.0-0.4); BILIRUBIN,TOTAL 0.4 mg/dL (0.2-1.3); BLOOD UREA NITROGEN 11 mg/dL (7-20); CALCIUM 9.1 mg/dL (8.4-10.2); CARBON DIOXIDE 30 mmol/L (22-30); CHLORIDE 102 mmol/L (98-107); GLUCOSE 102 mg/dL (75-110); POTASSIUM 4.4 mmol/L (3.6-5.0); SODIUM 137.4 mmol/L (137-145); TOTAL PROTEIN 6.5 g/dL (6.3-8.2)
[2018-03-14] MEDS ORDERED: AMIODARONE HCL 200 MG TABLET PO ONE (14:42)
[2018-03-14] MEDS ORDERED: METOPROLOL TARTRATE 25 MG TABLET PO ONE (14:42)
[2018-03-14] MEDS ORDERED: ALTEPLASE INJ 2 MG VIAL (CATH CLEARANCE) IV ONE (14:44)
--- NOTE | 2018-03-14 15:15 | RADIOLOGY REPORT (SQ) ---
EXAM DESCRIPTION: CHEST SINGLE VIEW COMPLETED DATE/TIME: 03/14/2018 2:49 pm REASON FOR STUDY: clogged PICC line, tachycardia COMPARISON: 02/23/2018 EXAM PARAMETERS: NUMBER OF VIEWS: One view. TECHNIQUE: Single frontal radiographic view of the chest acquired. RADIATION DOSE: NA LIMITATIONS: None. FINDINGS: LUNGS AND PLEURA: Opacification is seen in the lung bases. There is appearance of nodular ity in the lung bases. Small pleural effusions are present. There is considerable retrocardiac opac ity on the left. The left hemidiaphragm is indistinct. MEDIASTINUM AND HILAR STRUCTURES: No masses. Contour normal. HEART AND VASCULAR STRUCTURES: Heart normal in size. Normal vasculature. BONES: No acute findings. HARDWARE: Sternotomy wires. PICC line on the left. The tip of the catheter is in the superior vena cava. OTHER: No other significant finding. IMPRESSION: Bibasilar opacification. Left lower lobe consolidation cannot be excluded. The nodular ity appears to represent a change. There is a nodule in the medial right base that can perhaps be se en on the earlier study. An ovoid opacity in the right lower lung field may represent fluid in the f issure. TECHNICAL DOCUMENTATION: JOB ID: [id number] [employer] All Rights Reserved Reading location - IP/workstation name: [email or web address]
[2018-03-14 15:36] VITALS: BP 115/73
[2018-03-14] MEDS ORDERED: NORMAL SALINE 10 ML SDV (AFTER EACH USE) IV PRN (15:37)
--- NOTE | 2018-03-14 22:19 | EKG REPORT ---
SEVERITY:- BORDERLINE ECG - SINUS TACHYCARDIA PROBABLE LEFT ATRIAL ABNORMALITY BORDERLINE T WAVE ABNORMALITIES : Confirmed by: Harris Mobley 14-Mar-2018 22:18:42
== END 2018-03-14 15:59 | disposition home or self-care (01) ==
LOC: ER 12:58
DX: Z45.2 Encounter for adjustment and management of vascular access device (principal); Z95.2 Presence of prosthetic heart valve; J18.9 Pneumonia, unspecified organism; R00.0 Tachycardia, unspecified; D64.9 Anemia, unspecified; R91.1 Solitary pulmonary nodule
CPT/HCPCS: 93005; 36591; 99284; 96374; 36415; 85025; 80053; 81001; 71045; 93010; J2997; J3490; J1642